=== PATIENT | female | born 1950 | race Caucasian/White ===

== ENCOUNTER 2024-01-27 09:58 | Observation (INO) | payer MEDICARE ==
--- NOTE | 2024-01-27 10:06 | ERPHSYRPT ---
- History of Present Illness Time Seen by Provider: 01/27/24 10:06 Source: patient, family Exam Limitations: no limitations Physician History: This is a 73-year-old white female patient who arrives by private vehicle accompanied by her daughter. Patient does see a direct response consultant, Dr. Owen Champagne. She arrives with worsening shortness of breath and cough over the last week. At home, the patient states that she could not lie down because of her shortness of breath. The oxygen saturations on room air at home were in the 60s per patient and daughter. On arrival to the emergency department, the patient was placed on oxygen, initially via mask then nasal cannula. The oxygen saturation levels then increased to 99 to 100%. Patient has had a nonproductive cough she denies chest pain. She has not had a fever at home. Patient states that she does have a history of COPD and continues to smoke tobacco cigarettes. Timing/Duration: week(s), worse Activities at Onset: activity (Persons), other (Lying flat worsens) Severity of Dyspnea-Max: moderate Severity of Dyspnea-Current: moderate Possible Cause: occasional episodes Modifying Factors: Improves With: coughing Associated Symptoms: cough, wheezing, No chest pain/discomfort Allergies/Adverse Reactions: Penicillins Allergy (Verified 01/27/24 09:59) Home Medications: Albuterol 8 gm Mdi Hfa [Ventolin Hfa MDI] 2 puff IH Q4HPRN PRN 01/27/24 [History] Atorvastatin Calcium [Lipitor] 20 mg PO DAILY 01/27/24 [History] Carvedilol 12.5 mg [Coreg 12.5 mg] 12.5 mg PO BID 01/27/24 [History] Digoxin [Lanoxin] 250 mcg PO DAILY 01/27/24 [History] Fluticasone/Salmeterol 115/21 [Advair Hfa 115/21 Common canister*] 2 puff IH BID 01/27/24 [History] Fluticasone/Umeclidin/Vilanter [Trelegy Ellipta 100-62.5-25] 1 dose IH DAILY 01/27/24 [History] Ipratropium/Albuterol Sulfate [Combivent Respimat Common Canister] 1 puff IH QID 01/27/24 [History] Non-Formulary Drug [Non-Formulary Bulk Item] 1 tab PO DAILY 01/27/24 [History] Prednisone 5 mg [Deltasone 5 mg] 5 mg PO DAILY 01/27/24 [History] Ranolazine 500 MG [Ranexa 500 MG] 500 mg PO DAILY 01/27/24 [History] Thyroid,Pork [Candy Wrapping Machine Operator Thyroid] 30 mg PO DAILY 01/27/24 [History] Travel Risk - International Travel Have you traveled outside of the country in past 3 weeks: No - Emerging Infectious Disease Are you exhibiting symptoms associated with any current EIDs: Yes Symptoms: Cough: New Onset, Shortness of Breath - Review of Systems Constitutional: No Symptoms Eyes: No Symptoms Ears, Nose, & Throat: No Symptoms Respiratory: Cough, Dyspnea on Exertion (PAIGE), Other (When lying flat) Cardiac: No Symptoms, No Chest Pain Abdominal/Gastrointestinal: No Symptoms Genitourinary Symptoms: No Symptoms Musculoskeletal: No Symptoms Skin: No Symptoms Neurological: No Symptoms Psychological: No Symptoms Endocrine: No Symptoms Hematologic/Lymphatic: No Symptoms Immunological/Allergic: No Symptoms All Other Systems: Reviewed and Negative - Past Medical History Pertinent Past Medical History: Yes - Nursing Vital Signs Nursing Vital Signs: Initial Vital Signs Temperature 97.5 F 01/27/24 10:00 Pulse Rate 115 H 01/27/24 10:00 Respiratory Rate 28 H 01/27/24 10:00 Blood Pressure 184/107 01/27/24 10:00 O2 Sat by Pulse Oximetry 63 L 01/27/24 10:00 Pain Scale Pain Intensity 0 - Physical Exam General Appearance: mild distress, alert Eye Exam: PERRL/EOMI, eyes nml inspection Ears, Nose, Throat Exam: hearing grossly normal, normal ENT inspection, normal pharynx Neck Exam: normal inspection, non-tender, supple, full range of motion Respiratory Exam: respiratory distress, airway intact, crackles/rales (Bilateral diffuse), rhonchi (Bilateral diffuse), No chest tenderness Cardiovascular/Chest Exam: tachycardia Abdominal/Gastrointestinal Exam: soft, normal bowel sounds, No tenderness Rectal Exam: not done Extremity Exam: non-tender, normal range of motion, No normal inspection Neurologic Exam: alert, oriented x 3, cooperative, maintenance department manager II-XII nml as tested, nml cerebellar function, nml station & gait, sensation nml Skin Exam: normal color, warm, dry Lymphatic Exam: No adenopathy SpO2 Interpretation: normal O2 Delivery: Nasal Cannula - Course Nursing assessment & vital signs reviewed: Yes EKG Interpreted by Me: RATE ([id number]), Sinus Rhythm, NORMAL AXIS, NORMAL INTERVALS, NORMAL QRS, NORMAL ST-T, Other (No acute ischemic changes on today's twelve-lead EKG. QTc is 412) Ordered Tests: Active Orders 24 hr Category Date Time Status Physical Therapy Instructor STAT Care 01/27/24 10:31 Active EKG-ER Only STAT Care 01/27/24 10:31 Active IV Insertion STAT Care 01/27/24 10:22 Active IV Insertion-2nd Peripheral STAT Care 01/27/24 10:22 Active Pulse Oximetry (ED) STAT Care 01/27/24 10:31 Active CHEST 1 VIEW (PORTABLE) Stat Exams 01/27/24 13:20 Taken ARTERIAL BLOOD GASES Urgent Lab 01/27/24 10:14 Completed BLOOD CULTURE Stat Lab 01/27/24 10:30 Received CBC W DIFF Stat Lab 01/27/24 10:30 Completed CMP Stat Lab 01/27/24 10:30 Completed Lactic Acid Urgent Lab 01/27/24 10:14 Completed MAGNESIUM Stat Lab 01/27/24 10:30 Completed Manual Differential NC Stat Lab 01/27/24 10:30 Completed NT PRO BNPII Stat Lab 01/27/24 10:30 Completed PROTIME WITH INR Stat Lab 01/27/24 10:30 Completed TROPONIN Q4H Lab 01/27/24 10:30 Completed TROPONIN Q4H Lab 01/27/24 14:45 Ordered TROPONIN Q4H Lab 01/27/24 18:45 Ordered Respiratory Therapy Assessment DAILY RT 01/27/24 11:32 Active Medication Summary Generic Name Dose Route Start Last Admin Trade Name Freq PRN Reason Stop Dose Admin Levofloxacin/Dextrose 500 mg in 100 mls @ 100 mls/hr 01/27/24 14:09 01/27/24 14:32 Levofloxacin 500mg/100ml D5w IV 01/27/24 15:08 100 mls/hr STAT STA 100 mls/hr Administration Discontinued Medications Generic Name Dose Route Start Last Admin Trade Name Freq PRN Reason Stop Dose Admin Albuterol/Ipratropium 3 ml 01/27/24 10:31 01/27/24 11:17 Ipratropium/Albuterol Sulfate 3 Ml Ampul.Neb IH 01/27/24 10:32 3 ml STAT ONE Administration Albuterol/Ipratropium Confirm 01/27/24 11:16 Ipratropium/Albuterol Sulfate 3 Ml Ampul.Neb Administered 01/27/24 11:17 Dose 3 ml IH .STK-MED ONE Methylprednisolone Sodium 0 mg 01/27/24 10:31 01/27/24 11:02 Succinate 125 mg/ Sterile IV 01/27/24 10:32 125 mg Water 2 ml STAT ONE Administration Furosemide 40 mg 01/27/24 11:31 01/27/24 11:38 Furosemide 40 Mg/4 Ml Vial IV 01/27/24 11:32 40 mg STAT ONE Administration Furosemide Confirm 01/27/24 11:37 Furosemide 40 Mg/4 Ml Vial Administered 01/27/24 11:38 Dose 40 mg .ROUTE .STK-MED ONE Levofloxacin/Dextrose Confirm 01/27/24 14:30 Levofloxacin 500mg/100ml D5w Administered 01/27/24 14:31 Dose 500 mg in 100 mls @ ud IV .STK-MED ONE Methylprednisolone Sodium Succinate Confirm 01/27/24 11:02 Methylprednis Sod Succ 125 Mg/2 Ml Vial Administered 01/27/24 11:03 Dose 125 mg .ROUTE .STK-MED ONE Sterile Water Confirm 01/27/24 11:02 Water For Injection,Sterile 10 Ml Vial Administered 01/27/24 11:03 Dose 10 ml IJ .STK-MED ONE Lab/Rad Data: Laboratory Result Diagrams 01/27/24 10:30 01/27/24 10:30 Laboratory Results 01/27/24 01/27/24 01/27/24 Range/Units 10:50 10:30 10:30 WBC (3.98-10.04) x10^3/uL RBC (3.93-5.22) x10^6/uL Hgb (11.2-15.7) g/dL Hct (34.1-44.9) % MCV (79.4-94.8) fL MCH (25.6-32.2) pg MCHC (32.2-35.5) g/dL RDW (11.7-14.4) % Plt Count (182-369) x10^3/uL MPV (9.4-12.3) fL Gran % (34.0-71.1) % Immature Gran % (Auto) (0.001-0.429) % Nucleat RBC Rel Count (0.00-0.2) % Eos # (Auto) (0.04-0.36) x10^3/uL Immature Gran # (Auto) (0.001-0.031) x10^3u/L Absolute Lymphs (auto) (1.18-3.74) x10^3/uL Absolute Monos (auto) (0.24-0.86) x10^3/uL Absolute Nucleated RBC (0.00-0.012) x10^3u/L Lymphocytes % (19.3-51.7) % Monocytes % (4.7-12.5) % Eosinophils % (0.7-5.8) % Basophils % (0.1-1.2) % Absolute Granulocytes (1.56-6.13) x10^3/uL Segmented Neutrophils (34.0-71.1) % Lymphocytes (Manual) (19.3-51.7) % Monocytes (Manual) (4.7-12.5) % Basophils # (0.01-0.08) x10^3/uL Platelet Estimate (NORMAL) RBC Morphology PT (9.4-12.5) SECONDS INR (0.8-3.0) Puncture Site pCO2 (35-45) mmHg pO2 (75-100) mmHg Base Excess (-2.0-2.0) O2 Saturation (94-100) g/dF ABG pH (7.35-7.45) ABG HCO3 (22-28) ABG O2 Sat (Measured) (95-100) % Jaylan Test A-a Gradient a/A Ratio Hemoglobin Carboxyhemoglobin (0.0-6.9) % THgb Methemoglobin (1.4-1.5) % Potassium (3.5-5.1) Temperature C POC O2 Flow Rate % Sodium (135-145) mmol/L Chloride (98-107) mmol/L Carbon Dioxide (22-30) mmol/L Anion Gap (5-15) MEQ/L BUN (7-17) mg/dL Creatinine (0.52-1.04) mg/dL Estimated GFR ML/MIN Glucose (74-106) mg/dL Lactic Acid (0.4-2.0) Calcium (8.4-10.2) mg/dL Magnesium (1.6-2.3) mg/dL Total Bilirubin (0.2-1.3) mg/dL AST (14-36) U/L ALT (0-35) U/L Alkaline Phosphatase (38-126) U/L Troponin I 0.012 (0.000-0.033) ng/mL NT-Pro-B Natriuret Pep 59562 (<300) pg/mL Serum Total Protein (6.3-8.2) g/dL Albumin (3.5-5.0) g/dL Influenza Type A Ag NEGATIVE (NEGATIVE) Influenza Type B Ag NEGATIVE (NEGATIVE) RSV (PCR) NEGATIVE (NEGATIVE) SARS-CoV-2 (PCR) NEGATIVE (NEGATIVE) 01/27/24 01/27/24 01/27/24 Range/Units 10:30 10:30 10:30 WBC 14.6 H (3.98-10.04) x10^3/uL RBC 4.61 (3.93-5.22) x10^6/uL Hgb 13.4 (11.2-15.7) g/dL Hct 39.8 (34.1-44.9) % MCV 86.3 (79.4-94.8) fL MCH 29.1 (25.6-32.2) pg MCHC 33.7 (32.2-35.5) g/dL RDW 13.3 (11.7-14.4) % Plt Count 331 (182-369) x10^3/uL MPV 8.9 L (9.4-12.3) fL Gran % 83.3 H (34.0-71.1) % Immature Gran % (Auto) 0.6 H (0.001-0.429) % Nucleat RBC Rel Count 0.0 (0.00-0.2) % Eos # (Auto) 0.58 H (0.04-0.36) x10^3/uL Immature Gran # (Auto) 0.09 H (0.001-0.031) x10^3u/L Absolute Lymphs (auto) 1.15 L (1.18-3.74) x10^3/uL Absolute Monos (auto) 0.57 (0.24-0.86) x10^3/uL Absolute Nucleated RBC 0.00 (0.00-0.012) x10^3u/L Lymphocytes % 7.9 L (19.3-51.7) % Monocytes % 3.9 L (4.7-12.5) % Eosinophils % 4.0 (0.7-5.8) % Basophils % 0.3 (0.1-1.2) % Absolute Granulocytes 12.12 H (1.56-6.13) x10^3/uL Segmented Neutrophils 92 H (34.0-71.1) % Lymphocytes (Manual) 5 L (19.3-51.7) % Monocytes (Manual) 3 L (4.7-12.5) % Basophils # 0.05 (0.01-0.08) x10^3/uL Platelet Estimate NORMAL (NORMAL) RBC Morphology NORMAL PT 12.4 (9.4-12.5) SECONDS INR 1.15 (0.8-3.0) Puncture Site pCO2 (35-45) mmHg pO2 (75-100) mmHg Base Excess (-2.0-2.0) O2 Saturation (94-100) g/dF ABG pH (7.35-7.45) ABG HCO3 (22-28) ABG O2 Sat (Measured) (95-100) % Jaylan Test A-a Gradient a/A Ratio Hemoglobin Carboxyhemoglobin (0.0-6.9) % THgb Methemoglobin (1.4-1.5) % Potassium 4.5 (3.5-5.1) Temperature C POC O2 Flow Rate % Sodium 129 L (135-145) mmol/L Chloride 90 L (98-107) mmol/L Carbon Dioxide 30 (22-30) mmol/L Anion Gap 12.8 (5-15) MEQ/L BUN 9 (7-17) mg/dL Creatinine 0.64 (0.52-1.04) mg/dL Estimated GFR 92.7 ML/MIN Glucose 136 H (74-106) mg/dL Lactic Acid (0.4-2.0) Calcium 9.3 (8.4-10.2) mg/dL Magnesium 1.5 L (1.6-2.3) mg/dL Total Bilirubin 0.80 (0.2-1.3) mg/dL AST 24 (14-36) U/L ALT 23 (0-35) U/L Alkaline Phosphatase 72 (38-126) U/L Troponin I (0.000-0.033) ng/mL NT-Pro-B Natriuret Pep (<300) pg/mL Serum Total Protein 7.6 (6.3-8.2) g/dL Albumin 4.2 (3.5-5.0) g/dL Influenza Type A Ag (NEGATIVE) Influenza Type B Ag (NEGATIVE) RSV (PCR) (NEGATIVE) SARS-CoV-2 (PCR) (NEGATIVE) 01/27/24 Range/Units 10:14 WBC (3.98-10.04) x10^3/uL RBC (3.93-5.22) x10^6/uL Hgb (11.2-15.7) g/dL Hct (34.1-44.9) % MCV (79.4-94.8) fL MCH (25.6-32.2) pg MCHC (32.2-35.5) g/dL RDW (11.7-14.4) % Plt Count (182-369) x10^3/uL MPV (9.4-12.3) fL Gran % (34.0-71.1) % Immature Gran % (Auto) (0.001-0.429) % Nucleat RBC Rel Count (0.00-0.2) % Eos # (Auto) (0.04-0.36) x10^3/uL Immature Gran # (Auto) (0.001-0.031) x10^3u/L Absolute Lymphs (auto) (1.18-3.74) x10^3/uL Absolute Monos (auto) (0.24-0.86) x10^3/uL Absolute Nucleated RBC (0.00-0.012) x10^3u/L Lymphocytes % (19.3-51.7) % Monocytes % (4.7-12.5) % Eosinophils % (0.7-5.8) % Basophils % (0.1-1.2) % Absolute Granulocytes (1.56-6.13) x10^3/uL Segmented Neutrophils (34.0-71.1) % Lymphocytes (Manual) (19.3-51.7) % Monocytes (Manual) (4.7-12.5) % Basophils # (0.01-0.08) x10^3/uL Platelet Estimate (NORMAL) RBC Morphology PT (9.4-12.5) SECONDS INR (0.8-3.0) Puncture Site RIGHT BRACHIAL pCO2 50 H (35-45) mmHg pO2 97 (75-100) mmHg Base Excess 1.9 (-2.0-2.0) O2 Saturation 94.4 (94-100) g/dF ABG pH 7.36 (7.35-7.45) ABG HCO3 28.2 H (22-28) ABG O2 Sat (Measured) 99.2 (95-100) % Jaylan Test NOT APPLICABLE A-a Gradient 554 a/A Ratio 0.15 Hemoglobin 13.5 Carboxyhemoglobin 4.2 (0.0-6.9) % THgb Methemoglobin 0.6 L (1.4-1.5) % Potassium 4.1 (3.5-5.1) Temperature 37.0 C POC O2 Flow Rate 100 % Sodium (135-145) mmol/L Chloride (98-107) mmol/L Carbon Dioxide (22-30) mmol/L Anion Gap (5-15) MEQ/L BUN (7-17) mg/dL Creatinine (0.52-1.04) mg/dL Estimated GFR ML/MIN Glucose (74-106) mg/dL Lactic Acid 1.5 (0.4-2.0) Calcium (8.4-10.2) mg/dL Magnesium (1.6-2.3) mg/dL Total Bilirubin (0.2-1.3) mg/dL AST (14-36) U/L ALT (0-35) U/L Alkaline Phosphatase (38-126) U/L Troponin I (0.000-0.033) ng/mL NT-Pro-B Natriuret Pep (<300) pg/mL Serum Total Protein (6.3-8.2) g/dL Albumin (3.5-5.0) g/dL Influenza Type A Ag (NEGATIVE) Influenza Type B Ag (NEGATIVE) RSV (PCR) (NEGATIVE) SARS-CoV-2 (PCR) (NEGATIVE) - Progress Progress: improved, re-examined Progress Note: 01/27/24 11:37 My medical decision making and the assignment of moderate complexity to this patient's medical issue today is based on review of the patient's past medical history, review of the patient's medication list, reviewed patient drug allergy list, history present illness and physical findings on examination. The workup in this patient includes placement of a intravenous line, respiratory therapy evaluation management with DuoNeb treatment, infusion of Solu-Medrol, CBC, CMP, twelve-lead EKG, troponin level, BNP level, chest x-ray, viral swabs. Differential diagnosis includes but is not limited to viral illness, pneumonia, COPD exacerbation, CHF, myocardial infarction, arrhythmias 01/27/24 15:00 I interpreted the patient's laboratory data results. Based on laboratory data results, the patient has CHF. Patient also has leukocytosis with a left shift. The preliminary chest x-ray report was dictated by me. Patient has a right lower lobe infiltrate. I did speak with Dr. Godoy, the hospitalist on-call at this time. I reviewed the patient history, physical findings, laboratory workup and results. She accepts the patient to be placed in observation. Blood Culture(s) Obtained: Yes Antibiotics given: Yes Counseled pt/family regarding: lab results, diagnosis, rad results Medical Desision Making - Independent Historian Additional History obtained from: Family - Diagnostic Testing Diagnostic test were ordered, analyzed, and reviewed by me: Yes Radiological Interpretation: Interpreted by me - Risk of complications The pt has a high risk of morbidity or mortality based on: Decision regarding hospitilization or escalation of hosp level of care - Departure Departure Disposition: Observation Clinical Impression: Hypoxia, Pneumonia, CHF (congestive heart failure) Condition: Stable Critical Care Time: Yes Critical Care Time(excluding separately billable procedures): Critical 30-74 mins (40) Referrals: RUFINO CHAMPAGNE [ACTIVE STAFF] - Follow up/PCP as directed Instructions: Heart Failure
[2024-01-27 10:15] LABS: A-aADO2 554; ABG HEMOGLOBIN 13.5; ABG POTASSIUM 4.1 (3.5-5.1); ARTERIAL BLD GAS O2 SATURATION 99.2 % (95-100); ARTERIAL BLOOD GAS BASE EXCESS 1.9 (-2.0-2.0); ARTERIAL BLOOD GAS FIO2 100 %; ARTERIAL BLOOD GAS PCO2 50 mmHg (35-45); ARTERIAL BLOOD GAS PO2 97 mmHg (75-100); ARTERIAL BLOOD GAS pH 7.36 (7.35-7.45); CARBOXYHEMOGLOBIN 4.2 % THgb (0.0-6.9); HCO3- 28.2 (22-28); HGB O2 SAT 94.4 g/dF (94-100); Lactic Acid 1.5 (0.4-2.0); Methhemoglobin 0.6 % (1.4-1.5); paO2 pAO1 0.15
[2024-01-27 10:16] LABS: ABG SITE RIGHT BRACHIAL
[2024-01-27 10:41] LABS: Absolute Neutrophil Ct (ANC) 12.12 x10^3/uL (1.56-6.13); BASOPHIL % 0.3 % (0.1-1.2); Basophil (Absolute #) 0.05 x10^3/uL (0.01-0.08); Eosinophil (Absolute #) 0.58 x10^3/uL (0.04-0.36); Hematocrit 39.8 % (34.1-44.9); Hemoglobin 13.4 g/dL (11.2-15.7); IMMATURE GRAN # 0.09 x10^3u/L (0.001-0.031); IMMATURE GRAN % 0.6 % (0.001-0.429); Lymphocyte (Absolute #) 1.15 x10^3/uL (1.18-3.74); Lymphocytes % 7.9 % (19.3-51.7); Mean Cell Volume 86.3 fL (79.4-94.8); Mean Corpuscular Hemoglobin 29.1 pg (25.6-32.2); Mean Corpuscular Hgb Concent. 33.7 g/dL (32.2-35.5); Mean Platelet Volume 8.9 fL (9.4-12.3); Monocyte (Absolute #) 0.57 x10^3/uL (0.24-0.86); Monocytes % 3.9 % (4.7-12.5); Neutrophil % 83.3 % (34.0-71.1); Platelet Count 331 x10^3/uL (182-369); Red Blood Count 4.61 x10^6/uL (3.93-5.22); Red Cell Distribution Width 13.3 % (11.7-14.4); White Blood Count 14.6 x10^3/uL (3.98-10.04)
[2024-01-27 10:47] LABS: INR 1.15 (0.8-3.0); PROTIME 12.4 SECONDS (9.4-12.5)
[2024-01-27 10:49] LABS: ALBUMIN 4.2 g/dL (3.5-5.0); ANION GAP 12.8 MEQ/L (5-15); BILIRUBIN,TOTAL 0.8 mg/dL (0.2-1.3); Calcium 9.3 mg/dL (8.4-10.2); Creatinine 1 0.64 mg/dL (0.52-1.04); EST GLOMERULAR FILTRATION RATE 92.7 ML/MIN; MAGNESIUM 1.5 mg/dL (1.6-2.3); Potassium 4.5 mmol/L (3.5-5.1); Total Protein 7.6 g/dL (6.3-8.2)
[2024-01-27] MEDS ORDERED: Sterile H2O 10 ml IJ ONE ×2 (11:02→21:29)
[2024-01-27] MEDS ORDERED: solu-MEDROL ONE ×2 (11:02→21:28)
[2024-01-27] MEDS: solu-MEDROL 125 MG, Sterile H2O 10 ml 2 ML IV ONE (11:02)
[2024-01-27] MEDS ORDERED: DUONEB 0.5-3 MG/3 ml Neb IH ONE (11:16)
[2024-01-27] MEDS: DUONEB 0.5-3 MG/3 ml Neb IH ONE (11:17)
[2024-01-27] MEDS ORDERED: Lasix 40 MG/4 ML ONE (11:37)
[2024-01-27] MEDS: Lasix 40 MG/4 ML IV ONE (11:38)
[2024-01-27 11:42] LABS: Lymphocytes 5 % (19.3-51.7); Monocyte 3 % (4.7-12.5); Neutrophils 92 % (34.0-71.1); Total Cells Counted 100
[2024-01-27 11:43] LABS: Platelet Estimate NORMAL (NORMAL)
[2024-01-27 12:00] LABS: INFLUENZA A NEGATIVE (NEGATIVE); INFLUENZA B NEGATIVE (NEGATIVE); RESPIRATORY SYNCTIAL VIRUS NEGATIVE (NEGATIVE); SARS-CoV-2 Xpert Express NEGATIVE (NEGATIVE)
[2024-01-27] MEDS ORDERED: Levofloxacin 500MG/100ML D5W 500 MG/100 ML BAG IV ONE (14:30)
[2024-01-27] MEDS: Levofloxacin 500MG/100ML D5W 500 MG/100 ML BAG IV STA (14:32)
[2024-01-27] MEDS ORDERED: Zofran 4 MG/2 ML VIAL IV PRN (15:54)
--- NOTE | 2024-01-27 16:08 | PCM.HP ---
<RUSTY SILVER - Last Filed: 01/27/24 17:29> History of Present Illness - Chief Complaint Chief Complaint: Hypoxia Date: 01/27/24 History of Present Illness: is a 73 year old female with PMHX of HTN, COPD, asthma, hypothyroid ism, OA, and daily smoker. Patient does see a solar technician, Dr. Owen Valerio. She arrived to ER today with worsening shortness of breath and cough over the last week. At home, the patient stated that she could not lie down because of her shortness of breath. The oxygen saturations on room air at home were in the 60s per patient and daughter. On arrival to the emergency department, the patient was placed on oxygen, initially via mask then nasal cannula. The oxygen saturation levels then increased to 99 to 100%. Patient has had a nonproductive cough she denies chest pain. She has not had a fever at home. Patient states that she does have a history of COPD and continues to smoke tobacco cigarettes. In ER she was started on Lasix, Levaquin, steroids, and duonebs for COPD, CHF exacerbation- will continue. WBC 14.6, she is on 4lNC 93% and does not wear O2 at baseline. She continues to have SOB on admission. She states she will stay 1 night and she will leave tomorrow, either we release her or she will leave AMA. She is refusing a nicotine patch. Discussed we will re-evaluate in AM. - Review of Systems Constitutional: No Fever, No Chills Eyes: No Symptoms Ears, Nose, & Throat: No Symptoms Respiratory: Cough, Orthopnea, Short Of Breath, Other (with clear sputum p roduction) Cardiac: No Chest Pain, No Edema, No Syncope Abdominal/Gastrointestinal: No Abdominal Pain, No Nausea, No Vomiting, No Diarrhea Genitourinary Symptoms: No Dysuria Musculoskeletal: No Back Pain, No Neck Pain Skin: No Rash Neurological: No Dizziness, No Focal Weakness, No Sensory Changes Psychological: No Symptoms Endocrine: No Symptoms Hematologic/Lymphatic: No Symptoms Immunological/Allergic: No Symptoms Medications & Allergies Home Medications: Home Medication List Albuterol 8 gm Mdi Hfa [Ventolin Hfa MDI] 2 puff IH Q4HPRN PRN 01/27/24 [History Confirmed 01/27/24] Atorvastatin Calcium [Lipitor] 20 mg PO DAILY 01/27/24 [History Confirmed 01/27/24] Carvedilol 12.5 mg [Coreg 12.5 mg] 12.5 mg PO BID 01/27/24 [History Confirmed 01/27/24] Digoxin [Lanoxin] 250 mcg PO DAILY 01/27/24 [History Confirmed 01/27/24] Fexofenadine/Pseudoephedrine [Fexofenadine-Pse ER 180-240 Tb] 1 each PO DAILY 01/27/24 [History Confirmed 01/27/24] Fluticasone/Salmeterol 115/21 [Advair Hfa 115/21 Common canister*] 2 puff IH BID 01/27/24 [History Confirmed 01/27/24] Fluticasone/Umeclidin/Vilanter [Trelegy Ellipta 100-62.5-25] 1 dose IH DAILY 01/27/24 [History Confirmed 01/27/24] Ipratropium/Albuterol Sulfate [Combivent Respimat Common Canister] 1 puff IH QID 01/27/24 [History Confirmed 01/27/24] Prednisone 5 mg [Deltasone 5 mg] 5 mg PO DAILY 01/27/24 [History Confirmed 01/27/24] Ranolazine 500 MG [Ranexa 500 MG] 500 mg PO DAILY 01/27/24 [History Confirmed 01/27/24] Thyroid,Pork [Sieve Grader Tender Thyroid] 30 mg PO DAILY 01/27/24 [History Confirmed 01/27/24] Allergies/Adverse Reactions: Allergies Allergy/AdvReac Type Severity Reaction Status Date / Time Penicillins Allergy Verified 01/27/24 09:59 - Past Medical History Past Medical History: Yes Neurological History: No Pertinent History ENT History: Cataracts Cardiac History: Hypertension Respiratory History: Asthma, COPD Endocrine Medical History: Hypothyroidism Musculoskelatal History: Arthritis GI Medical History: No Pertinent History History: No Pertinent History Pyscho-Social History: No Pertinent History Reproductive Disorders: No Pertinent History - Past Surgical History Past Surgical History: Yes Neuro Surgical History: No Pertinent History Cardiac History: No Pertinent History Respiratory Surgery: No Pertinent History GI Surgical History: Cholecystectomy Genitourinary Surgical Hx: No Pertinent History Musculskeletal Surgical Hx: No Pertinent History Female Surgical History: Dilation & Curettage Significant Family History: no pertinent family hx - Social History Smoking Status: Current every day smoker How long have you smoked: 25+ YEARS Alcohol: None Drug Use: none - Social Determinants of Health Will the patient participate in the screening: Yes Do you worry about a steady place to live?: No Do you have any problems with any of the following?: No known problems In the past 12 months,have you had to go without utilities?: No Have you or anyone in your house had to go without enough: No Transportation Issues: No Has anyone in your support network made you feel unsafe?: No - Physical Exam Vital Signs: Vital Signs - 24 hr Temp Pulse Resp BP BP Pulse Ox 01/27/24 15:31 89 30 H 165/133 96 01/27/24 15:10 90 20 156/93 95 01/27/24 15:00 80 18 163/95 96 01/27/24 14:50 81 16 170/97 96 01/27/24 14:40 82 18 171/102 96 01/27/24 14:30 81 20 156/87 96 01/27/24 14:20 78 15 145/88 95 01/27/24 14:10 79 16 161/91 95 01/27/24 14:00 79 11 L 147/93 94 L 01/27/24 13:50 79 19 158/84 95 01/27/24 13:40 82 18 158/88 95 01/27/24 13:30 83 22 147/80 95 01/27/24 13:20 75 17 140/80 95 01/27/24 13:10 76 20 152/87 95 01/27/24 13:00 78 19 154/85 96 01/27/24 12:50 79 20 161/90 95 01/27/24 12:40 79 19 165/87 96 01/27/24 12:30 82 23 154/90 96 01/27/24 12:29 96 01/27/24 12:28 94 L 01/27/24 12:10 163/92 01/27/24 12:00 85 22 162/86 93 L 01/27/24 11:50 86 167/99 93 L 01/27/24 11:40 90 162/105 91 L 01/27/24 11:34 89 20 96 01/27/24 11:30 26 H 168/82 96 01/27/24 11:20 151/94 91 L 01/27/24 11:10 167/91 94 L 01/27/24 11:09 96 01/27/24 11:00 90 158/92 96 01/27/24 10:50 151/91 96 01/27/24 10:40 155/91 96 01/27/24 10:30 160/89 96 01/27/24 10:04 184/107 96 01/27/24 10:00 97.5 F 115 H 28 H 184/107 99 General Appearance: no apparent distress, alert, thin Neurologic Exam: alert, oriented x 3, cooperative, normal mood/affect, nml cerebellar function, nml station & gait, sensation nml, No motor deficits Eye Exam: PERRL/EOMI, eyes nml inspection Ears, Nose, Throat Exam: normal ENT inspection, TMs normal, pharynx normal, moist mucous membranes Neck Exam: normal inspection, non-tender, supple, full range of motion Respiratory Exam: normal breath sounds, wheezing, No respiratory distress Cardiovascular Exam: regular rate/rhythm, normal heart sounds, normal peripheral pulses Gastrointestinal/Abdomen Exam: soft, normal bowel sounds, No tenderness, No mass Back Exam: normal inspection, normal range of motion, No CVA tenderness, No vertebral tenderness Extremity Exam: normal inspection, normal range of motion, pelvis stable Skin Exam: normal color, warm, dry, No rash Lymphatic Exam: No adenopathy Results - Labs Lab/Micro Results: Lab Results-Last 24 Hours 01/27/24 01/27/24 01/27/24 Range/Units 10:14 10:30 10:30 WBC 14.6 H (3.98-10.04) x10^3/uL RBC 4.61 (3.93-5.22) x10^6/uL Hgb 13.4 (11.2-15.7) g/dL Hct 39.8 (34.1-44.9) % MCV 86.3 (79.4-94.8) fL MCH 29.1 (25.6-32.2) pg MCHC 33.7 (32.2-35.5) g/dL RDW 13.3 (11.7-14.4) % Plt Count 331 (182-369) x10^3/uL MPV 8.9 L (9.4-12.3) fL Gran % 83.3 H (34.0-71.1) % Immature Gran % (Auto) 0.6 H (0.001-0.429) % Nucleat RBC Rel Count 0.0 (0.00-0.2) % Eos # (Auto) 0.58 H (0.04-0.36) x10^3/uL Immature Gran # (Auto) 0.09 H (0.001-0.031) x10^3u/L Absolute Lymphs (auto) 1.15 L (1.18-3.74) x10^3/uL Absolute Monos (auto) 0.57 (0.24-0.86) x10^3/uL Absolute Nucleated RBC 0.00 (0.00-0.012) x10^3u/L Lymphocytes % 7.9 L (19.3-51.7) % Monocytes % 3.9 L (4.7-12.5) % Eosinophils % 4.0 (0.7-5.8) % Basophils % 0.3 (0.1-1.2) % Absolute Granulocytes 12.12 H (1.56-6.13) x10^3/uL Segmented Neutrophils 92 H (34.0-71.1) % Lymphocytes (Manual) 5 L (19.3-51.7) % Monocytes (Manual) 3 L (4.7-12.5) % Basophils # 0.05 (0.01-0.08) x10^3/uL Platelet Estimate NORMAL (NORMAL) RBC Morphology NORMAL PT (9.4-12.5) SECONDS INR (0.8-3.0) Puncture Site RIGHT BRACHIAL pCO2 50 H (35-45) mmHg pO2 97 (75-100) mmHg Base Excess 1.9 (-2.0-2.0) O2 Saturation 94.4 (94-100) g/dF ABG pH 7.36 (7.35-7.45) ABG HCO3 28.2 H (22-28) ABG O2 Sat (Measured) 99.2 (95-100) % Jaylan Test NOT APPLICABLE A-a Gradient 554 a/A Ratio 0.15 Hemoglobin 13.5 Carboxyhemoglobin 4.2 (0.0-6.9) % THgb Methemoglobin 0.6 L (1.4-1.5) % Potassium 4.1 4.5 (3.5-5.1) Temperature 37.0 C POC O2 Flow Rate 100 % Sodium 129 L (135-145) mmol/L Chloride 90 L (98-107) mmol/L Carbon Dioxide 30 (22-30) mmol/L Anion Gap 12.8 (5-15) MEQ/L BUN 9 (7-17) mg/dL Creatinine 0.64 (0.52-1.04) mg/dL Estimated GFR 92.7 ML/MIN Glucose 136 H (74-106) mg/dL Lactic Acid 1.5 (0.4-2.0) Calcium 9.3 (8.4-10.2) mg/dL Magnesium 1.5 L (1.6-2.3) mg/dL Total Bilirubin 0.80 (0.2-1.3) mg/dL AST 24 (14-36) U/L ALT 23 (0-35) U/L Alkaline Phosphatase 72 (38-126) U/L Troponin I (0.000-0.033) ng/mL NT-Pro-B Natriuret Pep (<300) pg/mL Serum Total Protein 7.6 (6.3-8.2) g/dL Albumin 4.2 (3.5-5.0) g/dL Influenza Type A Ag (NEGATIVE) Influenza Type B Ag (NEGATIVE) RSV (PCR) (NEGATIVE) SARS-CoV-2 (PCR) (NEGATIVE) 01/27/24 01/27/24 01/27/24 Range/Units 10:30 10:30 10:30 WBC (3.98-10.04) x10^3/uL RBC (3.93-5.22) x10^6/uL Hgb (11.2-15.7) g/dL Hct (34.1-44.9) % MCV (79.4-94.8) fL MCH (25.6-32.2) pg MCHC (32.2-35.5) g/dL RDW (11.7-14.4) % Plt Count (182-369) x10^3/uL MPV (9.4-12.3) fL Gran % (34.0-71.1) % Immature Gran % (Auto) (0.001-0.429) % Nucleat RBC Rel Count (0.00-0.2) % Eos # (Auto) (0.04-0.36) x10^3/uL Immature Gran # (Auto) (0.001-0.031) x10^3u/L Absolute Lymphs (auto) (1.18-3.74) x10^3/uL Absolute Monos (auto) (0.24-0.86) x10^3/uL Absolute Nucleated RBC (0.00-0.012) x10^3u/L Lymphocytes % (19.3-51.7) % Monocytes % (4.7-12.5) % Eosinophils % (0.7-5.8) % Basophils % (0.1-1.2) % Absolute Granulocytes (1.56-6.13) x10^3/uL Segmented Neutrophils (34.0-71.1) % Lymphocytes (Manual) (19.3-51.7) % Monocytes (Manual) (4.7-12.5) % Basophils # (0.01-0.08) x10^3/uL Platelet Estimate (NORMAL) RBC Morphology PT 12.4 (9.4-12.5) SECONDS INR 1.15 (0.8-3.0) Puncture Site pCO2 (35-45) mmHg pO2 (75-100) mmHg Base Excess (-2.0-2.0) O2 Saturation (94-100) g/dF ABG pH (7.35-7.45) ABG HCO3 (22-28) ABG O2 Sat (Measured) (95-100) % Jaylan Test A-a Gradient a/A Ratio Hemoglobin Carboxyhemoglobin (0.0-6.9) % THgb Methemoglobin (1.4-1.5) % Potassium (3.5-5.1) Temperature C POC O2 Flow Rate % Sodium (135-145) mmol/L Chloride (98-107) mmol/L Carbon Dioxide (22-30) mmol/L Anion Gap (5-15) MEQ/L BUN (7-17) mg/dL Creatinine (0.52-1.04) mg/dL Estimated GFR ML/MIN Glucose (74-106) mg/dL Lactic Acid (0.4-2.0) Calcium (8.4-10.2) mg/dL Magnesium (1.6-2.3) mg/dL Total Bilirubin (0.2-1.3) mg/dL AST (14-36) U/L ALT (0-35) U/L Alkaline Phosphatase (38-126) U/L Troponin I 0.012 (0.000-0.033) ng/mL NT-Pro-B Natriuret Pep 83076 (<300) pg/mL Serum Total Protein (6.3-8.2) g/dL Albumin (3.5-5.0) g/dL Influenza Type A Ag (NEGATIVE) Influenza Type B Ag (NEGATIVE) RSV (PCR) (NEGATIVE) SARS-CoV-2 (PCR) (NEGATIVE) 01/27/24 01/27/24 Range/Units 10:50 14:46 WBC (3.98-10.04) x10^3/uL RBC (3.93-5.22) x10^6/uL Hgb (11.2-15.7) g/dL Hct (34.1-44.9) % MCV (79.4-94.8) fL MCH (25.6-32.2) pg MCHC (32.2-35.5) g/dL RDW (11.7-14.4) % Plt Count (182-369) x10^3/uL MPV (9.4-12.3) fL Gran % (34.0-71.1) % Immature Gran % (Auto) (0.001-0.429) % Nucleat RBC Rel Count (0.00-0.2) % Eos # (Auto) (0.04-0.36) x10^3/uL Immature Gran # (Auto) (0.001-0.031) x10^3u/L Absolute Lymphs (auto) (1.18-3.74) x10^3/uL Absolute Monos (auto) (0.24-0.86) x10^3/uL Absolute Nucleated RBC (0.00-0.012) x10^3u/L Lymphocytes % (19.3-51.7) % Monocytes % (4.7-12.5) % Eosinophils % (0.7-5.8) % Basophils % (0.1-1.2) % Absolute Granulocytes (1.56-6.13) x10^3/uL Segmented Neutrophils (34.0-71.1) % Lymphocytes (Manual) (19.3-51.7) % Monocytes (Manual) (4.7-12.5) % Basophils # (0.01-0.08) x10^3/uL Platelet Estimate (NORMAL) RBC Morphology PT (9.4-12.5) SECONDS INR (0.8-3.0) Puncture Site pCO2 (35-45) mmHg pO2 (75-100) mmHg Base Excess (-2.0-2.0) O2 Saturation (94-100) g/dF ABG pH (7.35-7.45) ABG HCO3 (22-28) ABG O2 Sat (Measured) (95-100) % Jaylan Test A-a Gradient a/A Ratio Hemoglobin Carboxyhemoglobin (0.0-6.9) % THgb Methemoglobin (1.4-1.5) % Potassium (3.5-5.1) Temperature C POC O2 Flow Rate % Sodium (135-145) mmol/L Chloride (98-107) mmol/L Carbon Dioxide (22-30) mmol/L Anion Gap (5-15) MEQ/L BUN (7-17) mg/dL Creatinine (0.52-1.04) mg/dL Estimated GFR ML/MIN Glucose (74-106) mg/dL Lactic Acid (0.4-2.0) Calcium (8.4-10.2) mg/dL Magnesium (1.6-2.3) mg/dL Total Bilirubin (0.2-1.3) mg/dL AST (14-36) U/L ALT (0-35) U/L Alkaline Phosphatase (38-126) U/L Troponin I 0.017 (0.000-0.033) ng/mL NT-Pro-B Natriuret Pep (<300) pg/mL Serum Total Protein (6.3-8.2) g/dL Albumin (3.5-5.0) g/dL Influenza Type A Ag NEGATIVE (NEGATIVE) Influenza Type B Ag NEGATIVE (NEGATIVE) RSV (PCR) NEGATIVE (NEGATIVE) SARS-CoV-2 (PCR) NEGATIVE (NEGATIVE) - Radiology Impressions Radiology Exams & Impressions: Radiology Procedures Category Date Time Status CHEST 1 VIEW (PORTABLE) Stat Exams 01/27/24 13:20 Taken - Other Procedures and Tests Respiratory Therapy 01/27/24 11:32 Respiratory Therapy Assessment DAILY Assessment/Plan (1) COPD exacerbation Current Visit: Yes Status: Acute Assessment & Plan: - Duonebs, Levaquin, Steriods- started in ER Continue - Continue home advair, trelogy - CXR pending - CBC, CMP reviewed. - RT eval and treat keep O2> 92% Code(s): J44.1 - CHRONIC OBSTRUCTIVE PULMONARY DISEASE W (ACUTE) EXACERBATION (2) Hypomagnesemia Current Visit: Yes Status: Acute Assessment & Plan: - Mg+ 1.5- replaced- trend Code(s): E83.42 - HYPOMAGNESEMIA (3) Hyponatremia Current Visit: Yes Status: Acute Assessment & Plan: - Na+ 129- trend - No N/V/D. Code(s): E87.1 - HYPO-OSMOLALITY AND HYPONATREMIA (4) HTN (hypertension) Current Visit: Yes Status: Chronic Assessment & Plan: - Continue home meds - trend BP Code(s): I10 - ESSENTIAL (PRIMARY) HYPERTENSION (5) CHF (congestive heart failure) Current Visit: Yes Status: Acute Assessment & Plan: - Lasix IV gave in ER- continue 20 IV daily - No previous Echo on file to review - Unable to obtain echo on the weekends - BNP 25172- no previous labs to review - heart healthy diet Code(s): I50.9 - HEART FAILURE, UNSPECIFIED (6) Pneumonia Current Visit: Yes Status: Acute Assessment & Plan: - Per ER physician - IV antibiotoc, steriods, duonebs, advair, trelogy - CXR pending - WBC 14.6 - Flu/ COVID/RSV negative Code(s): J18.9 - PNEUMONIA, UNSPECIFIED ORGANISM (7) Hyperlipidemia Current Visit: Yes Status: Chronic Assessment & Plan: - Continue statin Code(s): E78.5 - HYPERLIPIDEMIA, UNSPECIFIED (8) Smoker Current Visit: Yes Status: Chronic Assessment & Plan: - refused nicotine patch - refuses to quit - advised cessation Code(s): F17.200 - NICOTINE DEPENDENCE, UNSPECIFIED, UNCOMPLICATED (9) Hypothyroidism Current Visit: Yes Status: Chronic Assessment & Plan: - continue synthroid VTE:Lovenox PPI: Protonix Next of KIN: Spouse D/C plan: 1-2 days COde status: Full Code(s): E03.9 - HYPOTHYROIDISM, UNSPECIFIED Telemedicine Encounter - Telemedicine Encounter Telemedicine Encounter: "The entirety of this encounter was performed via Telemedicine" This visit was performed using real-time audio and video connection between my location and thepatients locationwith the assistance of a surrogateat the patients location. Written or verbal consent was obtained from the patient/guardian to perform this visit [facility] technology. Any patient questions regarding the telemedicine interaction were answered. <ÓSCAR SOLANO - Last Filed: 01/27/24 18:23> History of Present Illness - Chief Complaint History of Present Illness: is a 73 year old female. - Physical Exam Vital Signs: Vital Signs - 24 hr Temp Pulse Resp BP BP Pulse Ox 01/27/24 18:16 95 H 22 92 L 01/27/24 16:02 97.7 F 88 27 H 151/85 93 L 01/27/24 15:31 89 30 H 165/133 96 01/27/24 15:10 90 20 156/93 95 01/27/24 15:00 80 18 163/95 96 01/27/24 14:50 81 16 170/97 96 01/27/24 14:40 82 18 171/102 96 01/27/24 14:30 81 20 156/87 96 01/27/24 14:20 78 15 145/88 95 01/27/24 14:10 79 16 161/91 95 01/27/24 14:00 79 11 L 147/93 94 L 01/27/24 13:50 79 19 158/84 95 01/27/24 13:40 82 18 158/88 95 01/27/24 13:30 83 22 147/80 95 01/27/24 13:20 75 17 140/80 95 01/27/24 13:10 76 20 152/87 95 01/27/24 13:00 78 19 154/85 96 01/27/24 12:50 79 20 161/90 95 01/27/24 12:40 79 19 165/87 96 01/27/24 12:30 82 23 154/90 96 11/30/24 12:29 96 01/27/24 12:28 94 L 01/27/24 12:10 163/92 01/27/24 12:00 85 22 162/86 93 L 01/27/24 11:50 86 167/99 93 L 01/27/24 11:40 90 162/105 91 L 01/27/24 11:34 89 20 96 01/27/24 11:30 26 H 168/82 96 01/27/24 11:20 151/94 91 L 01/27/24 11:10 167/91 94 L 01/27/24 11:09 96 01/27/24 11:00 90 158/92 96 01/27/24 10:50 151/91 96 01/27/24 10:40 155/91 96 01/27/24 10:30 160/89 96 01/27/24 10:04 184/107 96 01/27/24 10:00 97.5 F 115 H 28 H 184/107 99 Results - Labs Lab/Micro Results: Lab Results-Last 24 Hours 01/27/24 01/27/24 01/27/24 Range/Units 10:14 10:30 10:30 WBC 14.6 H (3.98-10.04) x10^3/uL RBC 4.61 (3.93-5.22) x10^6/uL Hgb 13.4 (11.2-15.7) g/dL Hct 39.8 (34.1-44.9) % MCV 86.3 (79.4-94.8) fL MCH 29.1 (25.6-32.2) pg MCHC 33.7 (32.2-35.5) g/dL RDW 13.3 (11.7-14.4) % Plt Count 331 (182-369) x10^3/uL MPV 8.9 L (9.4-12.3) fL Gran % 83.3 H (34.0-71.1) % Immature Gran % (Auto) 0.6 H (0.001-0.429) % Nucleat RBC Rel Count 0.0 (0.00-0.2) % Eos # (Auto) 0.58 H (0.04-0.36) x10^3/uL Immature Gran # (Auto) 0.09 H (0.001-0.031) x10^3u/L Absolute Lymphs (auto) 1.15 L (1.18-3.74) x10^3/uL Absolute Monos (auto) 0.57 (0.24-0.86) x10^3/uL Absolute Nucleated RBC 0.00 (0.00-0.012) x10^3u/L Lymphocytes % 7.9 L (19.3-51.7) % Monocytes % 3.9 L (4.7-12.5) % Eosinophils % 4.0 (0.7-5.8) % Basophils % 0.3 (0.1-1.2) % Absolute Granulocytes 12.12 H (1.56-6.13) x10^3/uL Segmented Neutrophils 92 H (34.0-71.1) % Lymphocytes (Manual) 5 L (19.3-51.7) % Monocytes (Manual) 3 L (4.7-12.5) % Basophils # 0.05 (0.01-0.08) x10^3/uL Platelet Estimate NORMAL (NORMAL) RBC Morphology NORMAL PT (9.4-12.5) SECONDS INR (0.8-3.0) Puncture Site RIGHT BRACHIAL pCO2 50 H (35-45) mmHg pO2 97 (75-100) mmHg Base Excess 1.9 (-2.0-2.0) O2 Saturation 94.4 (94-100) g/dF ABG pH 7.36 (7.35-7.45) ABG HCO3 28.2 H (22-28) ABG O2 Sat (Measured) 99.2 (95-100) % Jaylan Test NOT APPLICABLE A-a Gradient 554 a/A Ratio 0.15 Hemoglobin 13.5 Carboxyhemoglobin 4.2 (0.0-6.9) % THgb Methemoglobin 0.6 L (1.4-1.5) % Potassium 4.1 4.5 (3.5-5.1) Temperature 37.0 C POC O2 Flow Rate 100 % Sodium 129 L (135-145) mmol/L Chloride 90 L (98-107) mmol/L Carbon Dioxide 30 (22-30) mmol/L Anion Gap 12.8 (5-15) MEQ/L BUN 9 (7-17) mg/dL Creatinine 0.64 (0.52-1.04) mg/dL Estimated GFR 92.7 ML/MIN Glucose 136 H (74-106) mg/dL Lactic Acid 1.5 (0.4-2.0) Calcium 9.3 (8.4-10.2) mg/dL Magnesium 1.5 L (1.6-2.3) mg/dL Total Bilirubin 0.80 (0.2-1.3) mg/dL AST 24 (14-36) U/L ALT 23 (0-35) U/L Alkaline Phosphatase 72 (38-126) U/L Troponin I (0.000-0.033) ng/mL NT-Pro-B Natriuret Pep (<300) pg/mL Serum Total Protein 7.6 (6.3-8.2) g/dL Albumin 4.2 (3.5-5.0) g/dL Influenza Type A Ag (NEGATIVE) Influenza Type B Ag (NEGATIVE) RSV (PCR) (NEGATIVE) SARS-CoV-2 (PCR) (NEGATIVE) 01/27/24 01/27/24 01/27/24 Range/Units 10:30 10:30 10:30 WBC (3.98-10.04) x10^3/uL RBC (3.93-5.22) x10^6/uL Hgb (11.2-15.7) g/dL Hct (34.1-44.9) % MCV (79.4-94.8) fL MCH (25.6-32.2) pg MCHC (32.2-35.5) g/dL RDW (11.7-14.4) % Plt Count (182-369) x10^3/uL MPV (9.4-12.3) fL Gran % (34.0-71.1) % Immature Gran % (Auto) (0.001-0.429) % Nucleat RBC Rel Count (0.00-0.2) % Eos # (Auto) (0.04-0.36) x10^3/uL Immature Gran # (Auto) (0.001-0.031) x10^3u/L Absolute Lymphs (auto) (1.18-3.74) x10^3/uL Absolute Monos (auto) (0.24-0.86) x10^3/uL Absolute Nucleated RBC (0.00-0.012) x10^3u/L Lymphocytes % (19.3-51.7) % Monocytes % (4.7-12.5) % Eosinophils % (0.7-5.8) % Basophils % (0.1-1.2) % Absolute Granulocytes (1.56-6.13) x10^3/uL Segmented Neutrophils (34.0-71.1) % Lymphocytes (Manual) (19.3-51.7) % Monocytes (Manual) (4.7-12.5) % Basophils # (0.01-0.08) x10^3/uL Platelet Estimate (NORMAL) RBC Morphology PT 12.4 (9.4-12.5) SECONDS INR 1.15 (0.8-3.0) Puncture Site pCO2 (35-45) mmHg pO2 (75-100) mmHg Base Excess (-2.0-2.0) O2 Saturation (94-100) g/dF ABG pH (7.35-7.45) ABG HCO3 (22-28) ABG O2 Sat (Measured) (95-100) % Jaylan Test A-a Gradient a/A Ratio Hemoglobin Carboxyhemoglobin (0.0-6.9) % THgb Methemoglobin (1.4-1.5) % Potassium (3.5-5.1) Temperature C POC O2 Flow Rate % Sodium (135-145) mmol/L Chloride (98-107) mmol/L Carbon Dioxide (22-30) mmol/L Anion Gap (5-15) MEQ/L BUN (7-17) mg/dL Creatinine (0.52-1.04) mg/dL Estimated GFR ML/MIN Glucose (74-106) mg/dL Lactic Acid (0.4-2.0) Calcium (8.4-10.2) mg/dL Magnesium (1.6-2.3) mg/dL Total Bilirubin (0.2-1.3) mg/dL AST (14-36) U/L ALT (0-35) U/L Alkaline Phosphatase (38-126) U/L Troponin I 0.012 (0.000-0.033) ng/mL NT-Pro-B Natriuret Pep 47225 (<300) pg/mL Serum Total Protein (6.3-8.2) g/dL Albumin (3.5-5.0) g/dL Influenza Type A Ag (NEGATIVE) Influenza Type B Ag (NEGATIVE) RSV (PCR) (NEGATIVE) SARS-CoV-2 (PCR) (NEGATIVE) 01/27/24 01/27/24 Range/Units 10:50 14:46 WBC (3.98-10.04) x10^3/uL RBC (3.93-5.22) x10^6/uL Hgb (11.2-15.7) g/dL Hct (34.1-44.9) % MCV (79.4-94.8) fL MCH (25.6-32.2) pg MCHC (32.2-35.5) g/dL RDW (11.7-14.4) % Plt Count (182-369) x10^3/uL MPV (9.4-12.3) fL Gran % (34.0-71.1) % Immature Gran % (Auto) (0.001-0.429) % Nucleat RBC Rel Count (0.00-0.2) % Eos # (Auto) (0.04-0.36) x10^3/uL Immature Gran # (Auto) (0.001-0.031) x10^3u/L Absolute Lymphs (auto) (1.18-3.74) x10^3/uL Absolute Monos (auto) (0.24-0.86) x10^3/uL Absolute Nucleated RBC (0.00-0.012) x10^3u/L Lymphocytes % (19.3-51.7) % Monocytes % (4.7-12.5) % Eosinophils % (0.7-5.8) % Basophils % (0.1-1.2) % Absolute Granulocytes (1.56-6.13) x10^3/uL Segmented Neutrophils (34.0-71.1) % Lymphocytes (Manual) (19.3-51.7) % Monocytes (Manual) (4.7-12.5) % Basophils # (0.01-0.08) x10^3/uL Platelet Estimate (NORMAL) RBC Morphology PT (9.4-12.5) SECONDS INR (0.8-3.0) Puncture Site pCO2 (35-45) mmHg pO2 (75-100) mmHg Base Excess (-2.0-2.0) O2 Saturation (94-100) g/dF ABG pH (7.35-7.45) ABG HCO3 (22-28) ABG O2 Sat (Measured) (95-100) % Jaylan Test A-a Gradient a/A Ratio Hemoglobin Carboxyhemoglobin (0.0-6.9) % THgb Methemoglobin (1.4-1.5) % Potassium (3.5-5.1) Temperature C POC O2 Flow Rate % Sodium (135-145) mmol/L Chloride (98-107) mmol/L Carbon Dioxide (22-30) mmol/L Anion Gap (5-15) MEQ/L BUN (7-17) mg/dL Creatinine (0.52-1.04) mg/dL Estimated GFR ML/MIN Glucose (74-106) mg/dL Lactic Acid (0.4-2.0) Calcium (8.4-10.2) mg/dL Magnesium (1.6-2.3) mg/dL Total Bilirubin (0.2-1.3) mg/dL AST (14-36) U/L ALT (0-35) U/L Alkaline Phosphatase (38-126) U/L Troponin I 0.017 (0.000-0.033) ng/mL NT-Pro-B Natriuret Pep (<300) pg/mL Serum Total Protein (6.3-8.2) g/dL Albumin (3.5-5.0) g/dL Influenza Type A Ag NEGATIVE (NEGATIVE) Influenza Type B Ag NEGATIVE (NEGATIVE) RSV (PCR) NEGATIVE (NEGATIVE) SARS-CoV-2 (PCR) NEGATIVE (NEGATIVE) - Radiology Impressions Radiology Exams & Impressions: Radiology Procedures Category Date Time Status CHEST 1 VIEW (PORTABLE) Stat Exams 01/27/24 13:20 Taken - Other Procedures and Tests Respiratory Therapy 01/27/24 11:32 Respiratory Therapy Assessment DAILY 01/27/24 16:19 RT Miscellaneous Order ROUTINE 01/27/24 18:14 Oxygen Nasal Cannula 4 lpm 01/28/24 07:00 Respiratory MDI UD Telemedicine Encounter - Telemedicine Encounter Telemedicine Encounter: "The entirety of this encounter was performed via Telemedicine" This visit was performed using real-time audio and video connection between my location and thepatients locationwith the assistance of a surrogateat the patients location. Written or verbal consent was obtained from the patient/guar anthony to perform this visit using[employer] technology. Any patient questions regarding the telemedicine interaction were answered. ROHIT Encounter - ROHIT Encounter Attestation ROHIT Encounter Attestation: "ANISHA Manuel andtaiiscussed pertinent aspects of their care with Rusty Green agree with the history, physical exam (any modifications based on my personal exam will be noted below), assessment, and plan as outlined in original note. Please see imm ediately below for my summary of findings and additional assessment and plan along with any meaningful corrections/explanations to the Subjective/Objective portions of the ROHIT note will be noted." My portion of the encounter took place via telemedicine. -Patient admitted with dyspnea and hypoxia, found to have pneumonia, COPD exacerbation and acute on chronic CHF. Patient does not know her EF but suspect low since patient is on digoxin. Admit for IV antibiotics, IV steroids and IV lasix, oxygen support.
[2024-01-27] MEDS: COMBIVENT RESPIMAT COMMON CANISTER IH SCH (18:10)
[2024-01-27] MEDS: TYLENOL 325 MG PO PRN (19:17)
[2024-01-27] MEDS: DUONEB 0.5-3 MG/3 ml Neb IH SCH (19:26)
--- NOTE | 2024-01-27 20:46 | XRAY ---
Indication: Cough. Short of breath. Comparison: None Portable chest hyperinflated with minimal bibasilar infiltrates versus atelectasis. Upper lungs clear. Heart borderline enlarged. Bony thorax intact with osteopenia, mild degenerative changes, and mild double curvature scoliosis.
[2024-01-27] MEDS: COREG 12.5 MG PO SCH (21:30)
[2024-01-27] MEDS: solu-MEDROL 40 MG, Sterile H2O 10 ml 1 ML IV SCH (21:30)
[2024-01-27] MEDS ORDERED: Advair Hfa 115/21 Common canister IH SCH (22:00)
[2024-01-28 06:32] LABS: Absolute Neutrophil Ct (ANC) 6.04 x10^3/uL (1.56-6.13); BASOPHIL % 0.1 % (0.1-1.2); Basophil (Absolute #) 0.01 x10^3/uL (0.01-0.08); Eosinophil (Absolute #) 0 x10^3/uL (0.04-0.36); Hematocrit 37.1 % (34.1-44.9); Hemoglobin 12.6 g/dL (11.2-15.7); IMMATURE GRAN # 0.02 x10^3u/L (0.001-0.031); IMMATURE GRAN % 0.3 % (0.001-0.429); Lymphocyte (Absolute #) 0.81 x10^3/uL (1.18-3.74); Lymphocytes % 11.5 % (19.3-51.7); Mean Cell Volume 84.3 fL (79.4-94.8); Mean Corpuscular Hemoglobin 28.6 pg (25.6-32.2); Monocyte (Absolute #) 0.17 x10^3/uL (0.24-0.86); Monocytes % 2.4 % (4.7-12.5); Neutrophil % 85.7 % (34.0-71.1); Platelet Count 293 x10^3/uL (182-369); Red Cell Distribution Width 13.2 % (11.7-14.4); White Blood Count 7.1 x10^3/uL (3.98-10.04)
[2024-01-28 06:56] LABS: ALBUMIN 3.6 g/dL (3.5-5.0); ANION GAP 9.5 MEQ/L (5-15); BILIRUBIN,TOTAL 0.5 mg/dL (0.2-1.3); Calcium 8.8 mg/dL (8.4-10.2); Creatinine 1 0.73 mg/dL (0.52-1.04); EST GLOMERULAR FILTRATION RATE 86.2 ML/MIN; MAGNESIUM 1.6 mg/dL (1.6-2.3); Total Protein 6.6 g/dL (6.3-8.2)
[2024-01-28] MEDS ORDERED: DUONEB 0.5-3 MG/3 ml Neb IH ONE (07:30)
[2024-01-28] MEDS: PATIENT OWN MEDICATION IH SCH (07:47)
[2024-01-28] MEDS ORDERED: PATIENT OWN MEDICATION IH SCH (08:15)
[2024-01-28] MEDS: SODIUM CHLORIDE PO SCH (08:32)
--- NOTE | 2024-01-28 08:50 | PCM.DS ---
Discharge Summary Date of Admission: 01/27/24 15:53 Date of Discharge: 01/28/24 Admitting Physician: ÓSCAR SOLANO MD Primary Care Provider: BONIFACIO ROSALES Allergies Allergies Penicillins Allergy (Verified 01/27/24 09:59) Hospital Summary - Hospital Course Hospital Course: 01/27/24 is a 73 year old female with PMHX of HTN, COPD, asthma, hypothyroidism, OA, and daily smoker. Patient does see a auto mechanic, Dr. Owen Valerio. She arrived to ER today with worsening shortness of breath and cough over the last week. At home, the patient stated that she could not lie down because of her shortness of breath. The oxygen saturations on room air at home were in the 60s per patient and daughter. On arrival to the emergency department, the patient was placed on oxygen, initially via mask then nasal cannula. The oxygen saturation levels then increased to 99 to 100%. Patient has had a nonproductive cough she denies chest pain. She has not had a fever at home. Patient states that she does have a history of COPD and continues to s moke tobacco cigarettes. In ER she was started on Lasix, Levaquin, steroids, and duonebs for COPD, CHF exacerbation- will continue. WBC 14.6, she is on 4lNC 93% and does not wear O2 at baseline. She continues to have SOB on admission. She states she will stay 1 night and she will leave tomorrow, either we release her or she will leave AMA. She is refusing a nicotine patch. Discussed we will re-evaluate in AM. 01/28/24 Pt sitting up in bed. She is wanting to d/c today. She is still requiring O2 at 4lNC. Lung sounds are clear. Will have RT eval for home O2. She states she has had O2 at home in the past and for some unknown reason it was taken out of her home. She thinks she has probably needed it for a while now, prior to admission. Na+ 126 this AM fluid restriction started, continue lasix- likely SIADH. Pt is agreeable this afternoon to having lab rechecked and if improved will d/c then. Discussed she will need close f/u of labs OP with PCP. She states she feels much better today and is ready to d/c. - Vitals & Intake/Output Vital Signs: Vital Signs Temperature 98.6 F 01/28/24 07:30 Pulse Rate 84 01/28/24 07:45 Respiratory Rate 20 01/28/24 07:45 Blood Pressure 132/77 01/28/24 07:30 O2 Sat by Pulse Oximetry 91 L 01/28/24 07:45 Intake & Output: Intake & Output 01/25/24 01/26/24 01/27/24 01/28/24 11:59 11:59 11:59 11:59 Intake Total 600 Balance 600 Weight 50.6 kg 48.5 kg - Lab Result Diagrams: 01/28/24 06:08 01/28/24 06:08 Lab Results-Last 24 Hrs: Lab Results-Last 24 Hours 01/27/24 01/27/24 01/27/24 Range/Units 10:14 10:30 10:30 WBC 14.6 H (3.98-10.04) x10^3/uL RBC 4.61 (3.93-5.22) x10^6/uL Hgb 13.4 (11.2-15.7) g/dL Hct 39.8 (34.1-44.9) % MCV 86.3 (79.4-94.8) fL MCH 29.1 (25.6-32.2) pg MCHC 33.7 (32.2-35.5) g/dL RDW 13.3 (11.7-14.4) % Plt Count 331 (182-369) x10^3/uL MPV 8.9 L (9.4-12.3) fL Gran % 83.3 H (34.0-71.1) % Immature Gran % (Auto) 0.6 H (0.001-0.429) % Nucleat RBC Rel Count 0.0 (0.00-0.2) % Eos # (Auto) 0.58 H (0.04-0.36) x10^3/uL Immature Gran # (Auto) 0.09 H (0.001-0.031) x10^3u/L Absolute Lymphs (auto) 1.15 L (1.18-3.74) x10^3/uL Absolute Monos (auto) 0.57 (0.24-0.86) x10^3/uL Absolute Nucleated RBC 0.00 (0.00-0.012) x10^3u/L Lymphocytes % 7.9 L (19.3-51.7) % Monocytes % 3.9 L (4.7-12.5) % Eosinophils % 4.0 (0.7-5.8) % Basophils % 0.3 (0.1-1.2) % Absolute Granulocytes 12.12 H (1.56-6.13) x10^3/uL Segmented Neutrophils 92 H (34.0-71.1) % Lymphocytes (Manual) 5 L (19.3-51.7) % Monocytes (Manual) 3 L (4.7-12.5) % Basophils # 0.05 (0.01-0.08) x10^3/uL Platelet Estimate NORMAL (NORMAL) RBC Morphology NORMAL PT (9.4-12.5) SECONDS INR (0.8-3.0) Puncture Site RIGHT BRACHIAL pCO2 50 H (35-45) mmHg pO2 97 (75-100) mmHg Base Excess 1.9 (-2.0-2.0) O2 Saturation 94.4 (94-100) g/dF ABG pH 7.36 (7.35-7.45) ABG HCO3 28.2 H (22-28) ABG O2 Sat (Measured) 99.2 (95-100) % Jaylan Test NOT APPLICABLE A-a Gradient 554 a/A Ratio 0.15 Hemoglobin 13.5 Carboxyhemoglobin 4.2 (0.0-6.9) % THgb Methemoglobin 0.6 L (1.4-1.5) % Potassium 4.1 4.5 (3.5-5.1) Temperature 37.0 C POC O2 Flow Rate 100 % Sodium 129 L (135-145) mmol/L Chloride 90 L (98-107) mmol/L Carbon Dioxide 30 (22-30) mmol/L Anion Gap 12.8 (5-15) MEQ/L BUN 9 (7-17) mg/dL Creatinine 0.64 (0.52-1.04) mg/dL Estimated GFR 92.7 ML/MIN Glucose 136 H (74-106) mg/dL Lactic Acid 1.5 (0.4-2.0) Calcium 9.3 (8.4-10.2) mg/dL Magnesium 1.5 L (1.6-2.3) mg/dL Total Bilirubin 0.80 (0.2-1.3) mg/dL AST 24 (14-36) U/L ALT 23 (0-35) U/L Alkaline Phosphatase 72 (38-126) U/L Troponin I (0.000-0.033) ng/mL NT-Pro-B Natriuret Pep (<300) pg/mL Serum Total Protein 7.6 (6.3-8.2) g/dL Albumin 4.2 (3.5-5.0) g/dL Influenza Type A Ag (NEGATIVE) Influenza Type B Ag (NEGATIVE) RSV (PCR) (NEGATIVE) SARS-CoV-2 (PCR) (NEGATIVE) 01/27/24 01/27/24 01/27/24 Range/Units 10:30 10:30 10:30 WBC (3.98-10.04) x10^3/uL RBC (3.93-5.22) x10^6/uL Hgb (11.2-15.7) g/dL Hct (34.1-44.9) % MCV (79.4-94.8) fL MCH (25.6-32.2) pg MCHC (32.2-35.5) g/dL RDW (11.7-14.4) % Plt Count (182-369) x10^3/uL MPV (9.4-12.3) fL Gran % (34.0-71.1) % Immature Gran % (Auto) (0.001-0.429) % Nucleat RBC Rel Count (0.00-0.2) % Eos # (Auto) (0.04-0.36) x10^3/uL Immature Gran # (Auto) (0.001-0.031) x10^3u/L Absolute Lymphs (auto) (1.18-3.74) x10^3/uL Absolute Monos (auto) (0.24-0.86) x10^3/uL Absolute Nucleated RBC (0.00-0.012) x10^3u/L Lymphocytes % (19.3-51.7) % Monocytes % (4.7-12.5) % Eosinophils % (0.7-5.8) % Basophils % (0.1-1.2) % Absolute Granulocytes (1.56-6.13) x10^3/uL Segmented Neutrophils (34.0-71.1) % Lymphocytes (Manual) (19.3-51.7) % Monocytes (Manual) (4.7-12.5) % Basophils # (0.01-0.08) x10^3/uL Platelet Estimate (NORMAL) RBC Morphology PT 12.4 (9.4-12.5) SECONDS INR 1.15 (0.8-3.0) Puncture Site pCO2 (35-45) mmHg pO2 (75-100) mmHg Base Excess (-2.0-2.0) O2 Saturation (94-100) g/dF ABG pH (7.35-7.45) ABG HCO3 (22-28) ABG O2 Sat (Measured) (95-100) % Jaylan Test A-a Gradient a/A Ratio Hemoglobin Carboxyhemoglobin (0.0-6.9) % THgb Methemoglobin (1.4-1.5) % Potassium (3.5-5.1) Temperature C POC O2 Flow Rate % Sodium (135-145) mmol/L Chloride (98-107) mmol/L Carbon Dioxide (22-30) mmol/L Anion Gap (5-15) MEQ/L BUN (7-17) mg/dL Creatinine (0.52-1.04) mg/dL Estimated GFR ML/MIN Glucose (74-106) mg/dL Lactic Acid (0.4-2.0) Calcium (8.4-10.2) mg/dL Magnesium (1.6-2.3) mg/dL Total Bilirubin (0.2-1.3) mg/dL AST (14-36) U/L ALT (0-35) U/L Alkaline Phosphatase (38-126) U/L Troponin I 0.012 (0.000-0.033) ng/mL NT-Pro-B Natriuret Pep 92048 (<300) pg/mL Serum Total Protein (6.3-8.2) g/dL Albumin (3.5-5.0) g/dL Influenza Type A Ag (NEGATIVE) Influenza Type B Ag (NEGATIVE) RSV (PCR) (NEGATIVE) SARS-CoV-2 (PCR) (NEGATIVE) 01/27/24 01/27/24 01/27/24 Range/Units 10:50 14:46 19:08 WBC (3.98-10.04) x10^3/uL RBC (3.93-5.22) x10^6/uL Hgb (11.2-15.7) g/dL Hct (34.1-44.9) % MCV (79.4-94.8) fL MCH (25.6-32.2) pg MCHC (32.2-35.5) g/dL RDW (11.7-14.4) % Plt Count (182-369) x10^3/uL MPV (9.4-12.3) fL Gran % (34.0-71.1) % Immature Gran % (Auto) (0.001-0.429) % Nucleat RBC Rel Count (0.00-0.2) % Eos # (Auto) (0.04-0.36) x10^3/uL Immature Gran # (Auto) (0.001-0.031) x10^3u/L Absolute Lymphs (auto) (1.18-3.74) x10^3/uL Absolute Monos (auto) (0.24-0.86) x10^3/uL Absolute Nucleated RBC (0.00-0.012) x10^3u/L Lymphocytes % (19.3-51.7) % Monocytes % (4.7-12.5) % Eosinophils % (0.7-5.8) % Basophils % (0.1-1.2) % Absolute Granulocytes (1.56-6.13) x10^3/uL Segmented Neutrophils (34.0-71.1) % Lymphocytes (Manual) (19.3-51.7) % Monocytes (Manual) (4.7-12.5) % Basophils # (0.01-0.08) x10^3/uL Platelet Estimate (NORMAL) RBC Morphology PT (9.4-12.5) SECONDS INR (0.8-3.0) Puncture Site pCO2 (35-45) mmHg pO2 (75-100) mmHg Base Excess (-2.0-2.0) O2 Saturation (94-100) g/dF ABG pH (7.35-7.45) ABG HCO3 (22-28) ABG O2 Sat (Measured) (95-100) % Jaylan Test A-a Gradient a/A Ratio Hemoglobin Carboxyhemoglobin (0.0-6.9) % THgb Methemoglobin (1.4-1.5) % Potassium (3.5-5.1) Temperature C POC O2 Flow Rate % Sodium (135-145) mmol/L Chloride (98-107) mmol/L Carbon Dioxide (22-30) mmol/L Anion Gap (5-15) MEQ/L BUN (7-17) mg/dL Creatinine (0.52-1.04) mg/dL Estimated GFR ML/MIN Glucose (74-106) mg/dL Lactic Acid (0.4-2.0) Calcium (8.4-10.2) mg/dL Magnesium (1.6-2.3) mg/dL Total Bilirubin (0.2-1.3) mg/dL AST (14-36) U/L ALT (0-35) U/L Alkaline Phosphatase (38-126) U/L Troponin I 0.017 < 0.012 (0.000-0.033) ng/mL NT-Pro-B Natriuret Pep (<300) pg/mL Serum Total Protein (6.3-8.2) g/dL Albumin (3.5-5.0) g/dL Influenza Type A Ag NEGATIVE (NEGATIVE) Influenza Type B Ag NEGATIVE (NEGATIVE) RSV (PCR) NEGATIVE (NEGATIVE) SARS-CoV-2 (PCR) NEGATIVE (NEGATIVE) 01/28/24 01/28/24 Range/Units 06:08 06:08 WBC 7.1 (3.98-10.04) x10^3/uL RBC 4.40 (3.93-5.22) x10^6/uL Hgb 12.6 (11.2-15.7) g/dL Hct 37.1 (34.1-44.9) % MCV 84.3 (79.4-94.8) fL MCH 28.6 (25.6-32.2) pg MCHC 34.0 (32.2-35.5) g/dL RDW 13.2 (11.7-14.4) % Plt Count 293 (182-369) x10^3/uL MPV 9.0 L (9.4-12.3) fL Gran % 85.7 H (34.0-71.1) % Immature Gran % (Auto) 0.3 (0.001-0.429) % Nucleat RBC Rel Count 0.0 (0.00-0.2) % Eos # (Auto) 0 L (0.04-0.36) x10^3/uL Immature Gran # (Auto) 0.02 (0.001-0.031) x10^3u/L Absolute Lymphs (auto) 0.81 L (1.18-3.74) x10^3/uL Absolute Monos (auto) 0.17 L (0.24-0.86) x10^3/uL Absolute Nucleated RBC 0.00 (0.00-0.012) x10^3u/L Lymphocytes % 11.5 L (19.3-51.7) % Monocytes % 2.4 L (4.7-12.5) % Eosinophils % 0.0 L (0.7-5.8) % Basophils % 0.1 (0.1-1.2) % Absolute Granulocytes 6.04 (1.56-6.13) x10^3/uL Segmented Neutrophils (34.0-71.1) % Lymphocytes (Manual) (19.3-51.7) % Monocytes (Manual) (4.7-12.5) % Basophils # 0.01 (0.01-0.08) x10^3/uL Platelet Estimate (NORMAL) RBC Morphology PT (9.4-12.5) SECONDS INR (0.8-3.0) Puncture Site pCO2 (35-45) mmHg pO2 (75-100) mmHg Base Excess (-2.0-2.0) O2 Saturation (94-100) g/dF ABG pH (7.35-7.45) ABG HCO3 (22-28) ABG O2 Sat (Measured) (95-100) % Jaylan Test A-a Gradient a/A Ratio Hemoglobin Carboxyhemoglobin (0.0-6.9) % THgb Methemoglobin (1.4-1.5) % Potassium 4.0 (3.5-5.1) Temperature C POC O2 Flow Rate % Sodium 126 L (135-145) mmol/L Chloride 89 L (98-107) mmol/L Carbon Dioxide 32 H (22-30) mmol/L Anion Gap 9.5 (5-15) MEQ/L BUN 16 (7-17) mg/dL Creatinine 0.73 (0.52-1.04) mg/dL Estimated GFR 86.2 ML/MIN Glucose 134 H (74-106) mg/dL Lactic Acid (0.4-2.0) Calcium 8.8 (8.4-10.2) mg/dL Magnesium 1.6 (1.6-2.3) mg/dL Total Bilirubin 0.50 (0.2-1.3) mg/dL AST 17 (14-36) U/L ALT 13 (0-35) U/L Alkaline Phosphatase 66 (38-126) U/L Troponin I (0.000-0.033) ng/mL NT-Pro-B Natriuret Pep 83861 (<300) pg/mL Serum Total Protein 6.6 (6.3-8.2) g/dL Albumin 3.6 (3.5-5.0) g/dL Influenza Type A Ag (NEGATIVE) Influenza Type B Ag (NEGATIVE) RSV (PCR) (NEGATIVE) SARS-CoV-2 (PCR) (NEGATIVE) - Radiology Exams Ordered Rad Exams-Entire Visit: Radiology Procedures Category Date Time Status CHEST 1 VIEW (PORTABLE) Stat Exams 01/27/24 13:20 Completed - Procedures and Test Procedures and Tests throughout Hospitalization: Therapy Orders & Screens 01/27/24 11:32 Respiratory Therapy Assessment DAILY Comment: 01/27/24 16:15 RT Screen per Nursing Assess ONCE Comment: Protocol Order Physician Instructions: Greater than 3 points order RT Admission Screen Reason For Exam: Triggered on Admission Diagnosis: Hypoxia Diagnosis: Hypoxia Pneumonia: Yes Home O2: No Asthma: Yes CHF: Yes Home CPAP/BIPAP: No Home Nebs/MDI: Yes Total Points: 15 Smoking Cessation Education ONCE Comment: Diagnosis: Hypoxia Smoking Status: Current every day smoker How long have you smoked: 25+ YEARS Approximately how many cigarettes per day: 2 ST Screen per Nursing Assess ONCE Comment: Protocol Order Physician Instructions: Greater than [address] Admission Screening Reason For Exam: Triggered on Admission Diagnosis: Hypoxia CVA/Dyshpagia/Aphasia: No Cognitive Deficits: No Dehydration/Nutrition Deficit: No Reflux: No Oral-Motor Difficulties: No Pneumonia: Yes Long Term Resident: No Total Points: 5 01/27/24 16:19 RT Miscellaneous Order ROUTINE Comment: Physician Instructions: Reason For Exam: Eval and treat keep O2 > 92% Diagnosis: Hypoxia 01/27/24 18:14 Oxygen Nasal Cannula 4 lpm Comment: Diagnosis: Hypoxia 01/28/24 07:00 Respiratory MDI UD Comment: Diagnosis: Hypoxia 01/28/24 08:44 RT Miscellaneous Order ROUTINE Comment: pt wants to d/c today Physician Instructions: Reason For Exam: RT eval for home O2 Diagnosis: Hypoxia Discharge Exam General Appearance: no apparent distress, alert Neurologic Exam: alert, oriented x 3, cooperative, normal mood/affect, nml cerebellar function, sensation nml, No motor deficits Eye Exam: PERRL, EOMI, eyes nml inspection Ears, Nose, Throat Exam: normal ENT inspection, pharynx normal, moist mucous membranes Neck Exam: normal inspection, non-tender, supple, full range of motion Respiratory Exam: normal breath sounds, lungs clear, No respiratory distress Cardiovascular Exam: regular rate/rhythm, normal heart sounds Gastrointestinal/Abdomen Exam: soft, No tenderness, No mass Pelvic Exam: deferred Rectal Exam: deferred Back Exam: normal inspection, normal range of motion, No CVA tenderness, No vertebral tenderness Extremity Exam: normal inspection, normal range of motion Skin Exam: normal color, warm, dry Final Diagnosis/Problem List - Final Discharge Diagnosis/Problem (1) COPD exacerbation Current Visit: Yes Status: Acute Code(s): J44.1 - CHRONIC OBSTRUCTIVE PULMONARY DISEASE W (ACUTE) EXACERBATION (2) Hypomagnesemia Current Visit: Yes Status: Acute Code(s): E83.42 - HYPOMAGNESEMIA (3) Hyponatremia Current Visit: Yes Status: Acute Code(s): E87.1 - HYPO-OSMOLALITY AND HYPONATREMIA (4) HTN (hypertension) Current Visit: Yes Status: Chronic Code(s): I10 - ESSENTIAL (PRIMARY) HYPERTENSION (5) CHF (congestive heart failure) Current Visit: Yes Status: Acute Code(s): I50.9 - HEART FAILURE, UNSPECIFIED (6) Pneumonia Current Visit: Yes Status: Acute Code(s): J18.9 - PNEUMONIA, UNSPECIFIED ORGANISM (7) Hyperlipidemia Current Visit: Yes Status: Chronic Code(s): E78.5 - HYPERLIPIDEMIA, UNSPECIFIED (8) Smoker Current Visit: Yes Status: Chronic Code(s): F17.200 - NICOTINE DEPENDENCE, UNSPECIFIED, UNCOMPLICATED (9) Hypothyroidism Current Visit: Yes Status: Chronic Assessment & Plan: (1) COPD exacerbation Current Visit: Yes Status: Acute Assessment & Plan: - Duonebs, Levaquin, Steriods- started in ER Continue - Continue home advair, trelogy - CXR pending - CBC, CMP reviewed. - RT eval and treat keep O2> 92% 01/27 - Lung sounds clear - CBC, CMP reviewed - ON 4lNC - 90%- baseline RA - pt reports needing home O2 in the past - RT eval for home O2 Code(s): J44.1 - CHRONIC OBSTRUCTIVE PULMONARY DISEASE W (ACUTE) EXACERBATION (2) Hypomagnesemia Current Visit: Yes Status: Acute Assessment & Plan: - Mg+ 1.5- replaced- trend 01/27 - Mg+ 1.6- improved Code(s): E83.42 - HYPOMAGNESEMIA (3) Hyponatremia Current Visit: Yes Status: Acute Assessment & Plan: - Na+ 129- trend - No N/V/D. 01/27 - Na+ 126 - fluid restriction,Continue lasix, - recheck lab this afternoon- if ok will d/c. - Likely SIADH- will need OP lab f/u with further eval- pt wanting to leave today Code(s): E87.1 - HYPO-OSMOLALITY AND HYPONATREMIA (4) HTN (hypertension) Current Visit: Yes Status: Chronic Assessment & Plan: - Continue home meds - trend BP - BP stable Code(s): I10 - ESSENTIAL (PRIMARY) HYPERTENSION (5) CHF (congestive heart failure) Current Visit: Yes Status: Acute Assessment & Plan: - Lasix IV gave in ER- continue 20 IV daily - No previous Echo on file to review - Unable to obtain echo on the weekends - BNP 45486- no previous labs to review - heart healthy diet 01/27 - BNP 73852- improved Code(s): I50.9 - HEART FAILURE, UNSPECIFIED (6) Pneumonia Current Visit: Yes Status: Acute Assessment & Plan: - Per ER physician - IV antibiotic, steroids, duonebs, advair, trelogy - CXR reviewed- minimal bilbasilir infiltrates - WBC 14.6 - Flu/ COVID/RSV negative 12/1 - WBC WNL Code(s): J18.9 - PNEUMONIA, UNSPECIFIED ORGANISM (7) Hyperlipidemia Current Visit: Yes Status: Chronic Assessment & Plan: - Continue statin Code(s): E78.5 - HYPERLIPIDEMIA, UNSPECIFIED (8) Smoker Current Visit: Yes Status: Chronic Assessment & Plan: - refused nicotine patch - refuses to quit - advised cessation Code(s): F17.200 - NICOTINE DEPENDENCE, UNSPECIFIED, UNCOMPLICATED (9) Hypothyroidism Current Visit: Yes Status: Chronic Assessment & Plan: - continue synthroid Code(s): E03.9 - HYPOTHYROIDISM, UNSPECIFIED - Discharge Discharge Date: 01/28/24 Disposition: Home, Self-Care Condition: Stable Prescriptions: New Prednisone 20 mg [Deltasone 20 mg] 20 mg PO BID #10 tablet levoFLOXacin [Levofloxacin] 750 mg PO DAILY 5 Days #5 tablet Continue Fluticasone/Umeclidin/Vilanter [Trelegy Ellipta 100-62.5-25] 1 dose IH DAILY Albuterol 8 gm Mdi Hfa [Ventolin Hfa MDI] 2 puff IH Q4HPRN PRN PRN Reason: Shortness Of Breath/Wheezing Fluticasone/Salmeterol 115/21 [Advair Hfa 115/21 Common canister*] 2 puff IH BID Ipratropium/Albuterol Sulfate [Combivent Respimat Common Canister] 1 puff IH QID Atorvastatin Calcium [Lipitor] 20 mg PO DAILY Digoxin [Lanoxin] 250 mcg PO DAILY Thyroid,Pork [Creamery Worker Thyroid] 30 mg PO DAILY Prednisone 5 mg [Deltasone 5 mg] 5 mg PO DAILY Ranolazine 500 MG [Ranexa 500 MG] 500 mg PO DAILY Carvedilol 12.5 mg [Coreg 12.5 mg] 12.5 mg PO QHS Fexofenadine/Pseudoephedrine [Fexofenadine-Pse ER 180-240 Tb] 1 each PO DAILY Carvedilol [Coreg ] 6.25 mg PO DAILY Follow up with: BONIFACIO ROSALES MD [Primary Care Provider] -
[2024-01-28] MEDS: LEVOFLOXACIN 750MG/150ML D5W 750 MG/150 ML BAG IV SCH (09:44)
[2024-01-28] MEDS: Ranexa 500 MG PO SCH (09:44)
[2024-01-28] MEDS: Protonix 20MG Tablet PO SCH (09:44)
[2024-01-28] MEDS: NON-FORMULARY ITEM PO SCH (09:45)
[2024-01-28] MEDS: Lanoxin 0.125MG TABLET PO SCH (09:51)
[2024-01-28] MEDS: ENOXAPARIN SODIUM SQ SCH (09:59)
[2024-01-28] MEDS ORDERED: Lasix 20 MG/2 ML IV SCH (10:00)
[2024-01-28] MEDS ORDERED: THYROID PORK 15 MG PO SCH (10:00)
[2024-01-28] MEDS ORDERED: NON-FORMULARY ITEM (Atorvastatin Calcium [Lipitor] 20 MG Tablet) PO SCH (10:00)
[2024-01-28] MEDS ORDERED: Lanoxin 0.125MG TABLET PO SCH (10:00)
[2024-01-28] MEDS ORDERED: NON-FORMULARY ITEM (Fluticasone/Umeclidin/Vilanter [Trelegy Ellipta 100-62.5-25] 1 EACH Bl IH SCH (10:00)
[2024-01-28] MEDS ORDERED: DIGOXIN 250 MCG PO SCH (10:00)
[2024-01-28 11:36] VITALS: BP 132/60; PULSE 86; RESP 26; TEMP 97.8; O2SAT 96
[2024-01-28] MEDS: Lasix 40 MG PO SCH (12:18)
[2024-01-28] MEDS ORDERED: MAG-OX 400 PO ONE (16:10)
[2024-01-28] MEDS ORDERED: ZOCOR 20MG PO SCH (22:00)
== END 2024-01-28 13:59 | disposition home or self-care (01) ==
LOC: ED 09:58 → MED SURG 15:53
PROVIDERS: ADMIT Internal Medicine; ATTEND Internal Medicine
DX: J44.1 Chronic obstructive pulmonary disease with (acute) exacerbation (principal); E83.42 Hypomagnesemia; E87.1 Hypo-osmolality and hyponatremia; I11.0 Hypertensive heart disease with heart failure; I50.9 Heart failure, unspecified; J18.9 Pneumonia, unspecified organism; E78.5 Hyperlipidemia, unspecified; F17.200 Nicotine dependence, unspecified, uncomplicated; E03.9 Hypothyroidism, unspecified; Z79.899 Other long term (current) drug therapy
CPT/HCPCS: 0241U; 36415; 36600; 71045; 80053; 82375; 82803; 83605; 83735; 83880; 84295; 84484; 85025; 85610; 87040; 93005; 93041; 93268; 94640; 94760; 96365; 96374; 96375; 99291; G0378; Q3014; 99285; J1940; J1956; J2919; A9270-GY

== ENCOUNTER 2024-02-06 19:08 | Observation (INO) | payer MEDICARE ==
[2024-02-06 19:46] LABS: Hematocrit 43.2 % (34.1-44.9); Hemoglobin 13.4 g/dL (11.2-15.7); Mean Cell Volume 91.1 fL (79.4-94.8); Mean Corpuscular Hemoglobin 28.3 pg (25.6-32.2); Platelet Count 256 x10^3/uL (182-369); Red Blood Count 4.74 x10^6/uL (3.93-5.22); Red Cell Distribution Width 13.7 % (11.7-14.4); White Blood Count 14.7 x10^3/uL (3.98-10.04)
[2024-02-06] MEDS ORDERED: DUONEB 0.5-3 MG/3 ml Neb IH ONE (19:48)
[2024-02-06 19:52] LABS: ALBUMIN 3.8 g/dL (3.5-5.0); BILIRUBIN,TOTAL 0.6 mg/dL (0.2-1.3); Creatinine 1 0.66 mg/dL (0.52-1.04); Potassium 5.1 mmol/L (3.5-5.1); Total Protein 6.5 g/dL (6.3-8.2)
[2024-02-06] MEDS: PROVENTIL 2.5 MG/3 ML NEB IH ONE (20:00)
[2024-02-06] MEDS ORDERED: PROVENTIL 2.5 MG/3 ML NEB IH ONE (20:02)
[2024-02-06 20:04] LABS: ANION GAP 13.1 MEQ/L (5-15)
--- NOTE | 2024-02-06 20:06 | ERPHSYRPT ---
- History of Present Illness Time Seen by Provider: 02/06/24 19:30 Source: patient Exam Limitations: no limitations Patient Subjective Stated Complaint: Pt states "I can't breath." Triage Nursing Assessment: Pt presented alert and oriented X3, skin wpd. Pt able to speak in three to four word sentences. Pt has audible rhales noted. Physician History: 73-year-old female current smoker history of COPD asthma CHF presents to our ED for evaluation of shortness of breath. Patient reports she was recently started on oxygen nasal cannula. Patient uses 4 L 24 hours/day. Patient's shortness of breath has been progressive over the past couple days. No associated nausea vomiting or diaphoresis. No active pain. Symptoms are mild to moderate in intensity. No specific worsening improving factors. Symptoms are worse with exertion. Symptoms improved with rest. Patient also reports a cough. Patient cough in our ED. The cough is wet sounding but nonproductive. Daughter at bedside. They voiced no other complaints or concerns at this time. Portions of this note were created with voice recognition technology. There may be grammatical, spelling, punctuation or sound alike errors Timing/Duration: day(s) Severity: moderate Modifying Factors: Improves With: nothing Associated Symptoms: cough, No fever Allergies/Adverse Reactions: Penicillins Allergy (Verified 01/27/24 09:59) Home Medications: Albuterol 8 gm Mdi Hfa [Ventolin Hfa MDI] 2 puff IH Q4HPRN PRN 01/27/24 [History] Atorvastatin Calcium [Lipitor] 20 mg PO DAILY 01/27/24 [History] Carvedilol [Coreg ] 6.25 mg PO DAILY 01/27/24 [History] Carvedilol 12.5 mg [Coreg 12.5 mg] 12.5 mg PO QHS 01/27/24 [History] Digoxin [Lanoxin] 250 mcg PO DAILY 01/27/24 [History] Fexofenadine/Pseudoephedrine [Fexofenadine-Pse ER 180-240 Tb] 1 each PO DAILY 01/27/24 [History] Fluticasone/Salmeterol 115/21 [Advair Hfa 115/21 Common canister*] 2 puff IH BID 01/27/24 [History] Fluticasone/Umeclidin/Vilanter [Trelegy Ellipta 100-62.5-25] 1 dose IH DAILY 01/27/24 [History] Ipratropium/Albuterol Sulfate [Combivent Respimat Common Canister] 1 puff IH QID 01/27/24 [History] Prednisone 5 mg [Deltasone 5 mg] 5 mg PO DAILY 01/27/24 [History] Ranolazine 500 MG [Ranexa 500 MG] 500 mg PO DAILY 01/27/24 [History] Thyroid,Pork [[employer] Thyroid] 30 mg PO DAILY 01/27/24 [History] Hx Influenza Vaccination/Date Given: No Hx Pneumococcal Vaccination/Date Given: No Immunizations Up to Date: No Travel Risk - International Travel Have you traveled outside of the country in past 3 weeks: No - Emerging Infectious Disease Are you exhibiting symptoms associated with any current EIDs: No Symptoms: Cough: New Onset, Shortness of Breath - Review of Systems Constitutional: No Symptoms, No Fever, No Chills Eyes: No Symptoms Ears, Nose, & Throat: No Symptoms Respiratory: No Symptoms, No Cough, No Dyspnea Cardiac: No Symptoms, No Chest Pain, No Edema, No Syncope Abdominal/Gastrointestinal: No Symptoms, No Abdominal Pain, No Nausea, No Vomiting, No Diarrhea Genitourinary Symptoms: No Symptoms, No Dysuria Musculoskeletal: No Symptoms, No Back Pain, No Neck Pain Skin: No Symptoms, No Rash Neurological: No Symptoms, No Dizziness, No Focal Weakness, No Sensory Changes Psychological: No Symptoms Endocrine: No Symptoms Hematologic/Lymphatic: No Symptoms Immunological/Allergic: No Symptoms All Other Systems: Reviewed and Negative - Past Medical History Pertinent Past Medical History: Yes Neurological History: No Pertinent History ENT History: Cataracts Cardiac History: Hypertension Respiratory History: Asthma, COPD Endocrine Medical History: Hypothyroidism Musculoskeletal History: Arthritis GI Medical History: No Pertinent History History: No Pertinent History Psycho-Social History: No Pertinent History Female Reproductive Disorders: No Pertinent History - Past Surgical History Past Surgical History: Yes Neuro Surgical History: No Pertinent History Cardiac: No Pertinent History Respiratory: No Pertinent History Gastrointestinal: Cholecystectomy Genitourinary: No Pertinent History Musculoskeletal: No Pertinent History Female Surgical History: Dilation & Curettage Significant Family History: no pertinent family hx - Social History Smoking Status: Current every day smoker How long have you smoked: 25+ YEARS Exposure to second hand smoke: No Drug Use: none - Social Determinants of Health Will the patient participate in the screening: Yes Do you worry about a steady place to live?: No Do you have any problems with any of the following?: No known problems In the past 12 months,have you had to go without utilities?: No Transportation Issues: No Has anyone in your support network made you feel unsafe?: No Have you or anyone in your house had to go without enough: No - Nursing Vital Signs Nursing Vital Signs: Initial Vital Signs Temperature 98.2 F 02/06/24 19:08 Pulse Rate 103 H 02/06/24 19:08 Respiratory Rate 30 H 02/06/24 19:08 Blood Pressure 185/100 02/06/24 19:08 O2 Sat by Pulse Oximetry 95 02/06/24 19:08 Pain Scale Pain Intensity 0 - Physical Exam General Appearance: no apparent distress, alert Eye Exam: PERRL/EOMI, eyes nml inspection Ears, Nose, Throat Exam: normal ENT inspection, TMs normal, pharynx normal, moist mucous membranes Neck Exam: normal inspection, non-tender, supple, full range of motion Respiratory Exam: normal breath sounds, lungs clear, No respiratory distress Cardiovascular Exam: regular rate/rhythm, normal heart sounds, normal peripheral pulses Gastrointestinal/Abdomen Exam: soft, normal bowel sounds, No tenderness, No mass Back Exam: normal inspection, normal range of motion, No CVA tenderness, No vertebral tenderness Extremity Exam: normal inspection, normal range of motion, pelvis stable, pedal edema (1+ pitting edema bilateral lower extremities) Neurologic Exam: alert, oriented x 3, cooperative, normal mood/affect, nml cerebellar function, nml station & gait, sensation nml, No motor deficits Skin Exam: normal color, warm, dry, No rash Lymphatic Exam: No adenopathy SpO2 Interpretation: normal SpO2: 99 O2 Delivery: Room Air - Course Nursing assessment & vital signs reviewed: Yes EKG Interpreted by Me: RATE (81), Sinus Rhythm, NORMAL AXIS, NORMAL INTERVALS, NORMAL QRS (Quality of EKG limited secondary to motion artifact and respiratory artifact) - Radiology Exams Chest X-ray Interpretation: Interpreted by me (Pulmonary edema) Ordered Tests: Active Orders 24 hr Category Date Time Status Shape Hand STAT Care 02/06/24 19:39 Completed EKG-ER Only STAT Care 02/06/24 19:39 Completed IV Insertion STAT Care 02/06/24 19:39 Completed Pulse Oximetry (ED) STAT Care 02/06/24 19:39 Completed CHEST 1 VIEW (PORTABLE) Stat Exams 02/06/24 19:39 Completed BLOOD CULTURE Stat Lab 02/06/24 19:39 Stop Req CBC W DIFF Stat Lab 02/06/24 19:43 Completed CMP Stat Lab 02/06/24 19:43 Completed Manual Differential NC Stat Lab 02/06/24 19:43 Completed NT PRO BNPII Stat Lab 02/06/24 19:50 Completed TROPONIN Q4H Lab 02/06/24 19:43 Completed TROPONIN Q4H Lab 02/06/24 23:45 Ordered TROPONIN Q4H Lab 02/07/24 03:45 Ordered Medication Summary Discontinued Medications Generic Name Dose Route Start Last Admin Trade Name Freq PRN Reason Stop Dose Admin Albuterol Sulfate 2.5 mg 02/06/24 19:40 02/06/24 20:00 Albuterol Sulfate 2.5 Mg/3 Ml Neb IH 02/06/24 19:41 2.5 mg STAT ONE Administration Albuterol Sulfate Confirm 02/06/24 20:02 Albuterol Sulfate 2.5 Mg/3 Ml Neb Administered 02/06/24 20:03 Dose 2.5 mg IH .STK-MED ONE Albuterol/Ipratropium Confirm 02/06/24 19:48 Ipratropium/Albuterol Sulfate 3 Ml Ampul.Neb Administered 02/06/24 19:49 Dose 3 ml IH .STK-MED ONE Aspirin 324 mg 02/06/24 23:23 02/06/24 23:27 Aspirin 81 Mg Tab.Chew PO 02/06/24 23:24 324 mg STAT ONE Administration Aspirin Confirm 02/06/24 23:26 Aspirin 81 Mg Tab.Chew Administered 02/06/24 23:27 Dose 324 mg .ROUTE .STK-MED ONE Furosemide 40 mg 02/06/24 22:55 02/06/24 23:27 Furosemide 40 Mg/4 Ml Vial IV 02/06/24 22:56 40 mg STAT ONE Administration Furosemide Confirm 02/06/24 23:26 Furosemide 40 Mg/4 Ml Vial Administered 02/06/24 23:27 Dose 40 mg .ROUTE .STK-MED ONE Nitroglycerin 1 gm 02/06/24 23:22 02/06/24 23:27 Nitroglycerin 1 Gm Packet TOP 02/06/24 23:23 1 gm ONCE STA Administration Nitroglycerin Confirm 02/06/24 23:26 Nitroglycerin 1 Gm Packet Administered 02/06/24 23:27 Dose 1 gm .ROUTE .STK-MED ONE Lab/Rad Data: Laboratory Result Diagrams 02/06/24 19:43 02/06/24 19:43 Laboratory Results 02/06/24 02/06/24 02/06/24 Range/Units 19:50 19:43 19:43 WBC (3.98-10.04) x10^3/uL RBC (3.93-5.22) x10^6/uL Hgb (11.2-15.7) g/dL Hct (34.1-44.9) % MCV (79.4-94.8) fL MCH (25.6-32.2) pg MCHC (32.2-35.5) g/dL RDW (11.7-14.4) % Plt Count (182-369) x10^3/uL MPV (9.4-12.3) fL Segmented Neutrophils (34.0-71.1) % Lymphocytes (Manual) (19.3-51.7) % Monocytes (Manual) (4.7-12.5) % Atypical Lymphocytes % Platelet Estimate (NORMAL) RBC Morphology Sodium 131 L (135-145) mmol/L Potassium 5.1 (3.5-5.1) mmol/L Chloride 88 L (98-107) mmol/L Carbon Dioxide 35 H (22-30) mmol/L Anion Gap 13.1 (5-15) MEQ/L BUN 16 (7-17) mg/dL Creatinine 0.66 (0.52-1.04) mg/dL Estimated GFR 92.0 ML/MIN Glucose 144 H (74-106) mg/dL Calcium 9.0 (8.4-10.2) mg/dL Total Bilirubin 0.60 (0.2-1.3) mg/dL AST 21 (14-36) U/L ALT 18 (0-35) U/L Alkaline Phosphatase 53 (38-126) U/L Troponin I < 0.012 (0.000-0.033) ng/mL NT-Pro-B Natriuret Pep 9040 (<300) pg/mL Serum Total Protein 6.5 (6.3-8.2) g/dL Albumin 3.8 (3.5-5.0) g/dL 02/06/24 Range/Units 19:43 WBC 14.7 H (3.98-10.04) x10^3/uL RBC 4.74 (3.93-5.22) x10^6/uL Hgb 13.4 (11.2-15.7) g/dL Hct 43.2 (34.1-44.9) % MCV 91.1 (79.4-94.8) fL MCH 28.3 (25.6-32.2) pg MCHC 31.0 L (32.2-35.5) g/dL RDW 13.7 (11.7-14.4) % Plt Count 256 (182-369) x10^3/uL MPV 9.0 L (9.4-12.3) fL Segmented Neutrophils 94 H (34.0-71.1) % Lymphocytes (Manual) 2 L (19.3-51.7) % Monocytes (Manual) 3 L (4.7-12.5) % Atypical Lymphocytes 1 % Platelet Estimate NORMAL (NORMAL) RBC Morphology NORMAL Sodium (135-145) mmol/L Potassium (3.5-5.1) mmol/L Chloride (98-107) mmol/L Carbon Dioxide (22-30) mmol/L Anion Gap (5-15) MEQ/L BUN (7-17) mg/dL Creatinine (0.52-1.04) mg/dL Estimated GFR ML/MIN Glucose (74-106) mg/dL Calcium (8.4-10.2) mg/dL Total Bilirubin (0.2-1.3) mg/dL AST (14-36) U/L ALT (0-35) U/L Alkaline Phosphatase (38-126) U/L Troponin I (0.000-0.033) ng/mL NT-Pro-B Natriuret Pep (<300) pg/mL Serum Total Protein (6.3-8.2) g/dL Albumin (3.5-5.0) g/dL - Progress Progress: improved Progress Note: Case discussed with Dr. Holman at 11:17 PM. Patient accepted to observation for further evaluation and treatment. 73-year-old female presents for emergency department for evaluation of shortness of breath. Patient was discharged just over a week ago for similar symptoms. Patient was diagnosed with congestive heart failure. Patient now on 4 L nasal cannula. Physical exam reveals crackles throughout. 1+ pitting edema bilateral lower extremity. BNP 9040. Lasix 40 mg IV administered. Nitropaste applied. 324 aspirin administered as well. Chest x-ray shows pulmonary congestion. Patient is hyponatremic at 131 however this is improved since her last admission approximately 10 days ago. Patient has a leukocytosis of 14,000 however patient just completed a course of steroids. Urinalysis pending. No antibiotics indicated at this time. Patient will require hospitalization for further evaluation and treatment. Plan of care discussed with patient. She agrees to admission [facility] for further evaluation and treatment. Portions of this note were created with voice recognition technology. There may be grammatical, spelling, punctuation or sound alike errors Complexity of problem addressed is moderate acute complicated. No critical care time. Complex of data reviewed and analyzed is extensive. Test ordered chest reviewed results analyzed and correlated clinically with history and physical exam. Management discussed with hospitalist who accepts admission to observation. Risk of complication and or risk of morbidity/mortality of patient management is high. Patient requires hospitalization for further evaluation an d treatment. Vital stable. Time spent to admit patient is approximately 15 minutes. Plan of care established for shared decision making. No social determinants of health present to impede follow-up. Portions of this note were created with voice recognition technology. There may be grammatical, spelling, punctuation or sound alike errors 02/06/24 23:17 Counseled pt/family regarding: lab results, diagnosis, rad results - Departure Departure Disposition: Observation Clinical Impression: Hypoxia, SOB (shortness of breath), CHF (congestive heart failure), Leukocytosis, Elevated brain natriuretic peptide (BNP) level Condition: Stable Critical Care Time: No
[2024-02-06 20:50] LABS: ATYPICAL LYMPHS 1 %; Lymphocytes 2 % (19.3-51.7); Monocyte 3 % (4.7-12.5); Neutrophils 94 % (34.0-71.1); Platelet Estimate NORMAL (NORMAL); Total Cells Counted 100
[2024-02-06] MEDS ORDERED: BABY ASPIRIN 81 MG CHEW ONE (23:26)
[2024-02-06] MEDS ORDERED: Lasix 40 MG/4 ML ONE (23:26)
[2024-02-06] MEDS ORDERED: NITRO-BID 2% UD PACKETS ONE (23:26)
[2024-02-06] MEDS: Lasix 40 MG/4 ML IV ONE (23:27)
[2024-02-06] MEDS: BABY ASPIRIN 81 MG CHEW PO ONE (23:27)
[2024-02-06] MEDS: NITRO-BID 2% UD PACKETS TOP STA (23:27)
--- NOTE | 2024-02-07 00:06 | XRAY ---
CLINICAL HISTORY: sob COMPARISON: None. TECHNIQUE: Radiograph of chest was acquired. FINDINGS: Mild levoconvex scoliosis of the lower thoracic spine is noted. Emphysematous changes are present in bilateral upper lung zones. Few fibro-reticular opacities in seen in the right lower lung zone. The cardiomediastinal silhouette is within normal limits. No pleural effusion. No acute osseous abnormality. IMPRESSION: 1. Mild levoconvex lower thoracic scoliosis. 2. Emphysematous changes in bilateral upper lung zones with lower zone fibro- reticular opacities(right more than left). Electronically Signed by: Curly Williamson MD. (02/07/2024 00:02:18 EST)
[2024-02-07] MEDS ORDERED: TYLENOL 325 MG PO PRN (02:41)
[2024-02-07] MEDS ORDERED: solu-MEDROL ONE (04:03)
[2024-02-07 04:16] LABS: Hematocrit 39.5 % (34.1-44.9); Hemoglobin 12.7 g/dL (11.2-15.7); Mean Cell Volume 89.4 fL (79.4-94.8); Mean Corpuscular Hemoglobin 28.7 pg (25.6-32.2); Mean Corpuscular Hgb Concent. 32.2 g/dL (32.2-35.5); Mean Platelet Volume 8.9 fL (9.4-12.3); Platelet Count 222 x10^3/uL (182-369); Red Blood Count 4.42 x10^6/uL (3.93-5.22); Red Cell Distribution Width 13.6 % (11.7-14.4); White Blood Count 14.2 x10^3/uL (3.98-10.04)
[2024-02-07] MEDS: solu-MEDROL 40 MG, Sterile H2O 10 ml 1 ML IV STA (04:20)
[2024-02-07 04:29] LABS: Calcium 8.9 mg/dL (8.4-10.2); Creatinine 1 0.65 mg/dL (0.52-1.04); EST GLOMERULAR FILTRATION RATE 92.3 ML/MIN; Potassium 4.6 mmol/L (3.5-5.1)
--- NOTE | 2024-02-07 05:24 | PCM.HP ---
History of Present Illness - Chief Complaint Chief Complaint: shortness of breath Date: 02/07/24 History of Present Illness: is a 73 year old female with h/o COPD, CHF, HTN, and hypothyroidism, who presents with dyspnea. Patient was admitted previously from 01/26 to 01/27 with one week of progressive dyspnea and cough. She was found to have hyponatremia, and treated for COPD and CHF exacerbations. Patient declined to stay in the hospital any longer than one night, and was discharged home on 4L oxygen (she was on room air at baseline previously). She was given 5 day course of prednisone and levaquin. Patient completed all of these therapies, but did not follow up with PCP. She states her breathing never improved after discharge, with continued cough productive of thick white sputum. She also complains of orthopnea, PND, and leg edema. - Review of Systems Constitutional: No Fever, No Weakness Respiratory: Cough, Orthopnea, Short Of Breath Cardiac: Edema, PND, No Chest Pain All Other Systems: Reviewed and Negative Medications & Allergies Home Medications: Home Medication List Albuterol 8 gm Mdi Hfa [Ventolin Hfa MDI] 2 puff IH Q4HPRN PRN 01/27/24 [History Confirmed 02/06/24] Atorvastatin Calcium [Lipitor] 20 mg PO DAILY 01/27/24 [History Confirmed 02/06/24] Carvedilol [Coreg ] 6.25 mg PO DAILY 01/27/24 [History Confirmed 02/06/24] Carvedilol 12.5 mg [Coreg 12.5 mg] 12.5 mg PO QHS 01/27/24 [History Confirmed 02/06/24] Digoxin [Lanoxin] 250 mcg PO DAILY 01/27/24 [History Confirmed 02/06/24] Fexofenadine/Pseudoephedrine [Fexofenadine-Pse ER 180-240 Tb] 1 each PO DAILY 01/27/24 [History Confirmed 02/06/24] Fluticasone/Salmeterol 115/21 [Advair Hfa 115/21 Common canister*] 2 puff IH BID 01/27/24 [History Confirmed 02/06/24] Fluticasone/Umeclidin/Vilanter [Trelegy Ellipta 100-62.5-25] 1 dose IH DAILY 01/27/24 [History Confirmed 02/06/24] Ipratropium/Albuterol Sulfate [Combivent Respimat Common Canister] 1 puff IH QID 01/27/24 [History Confirmed 02/06/24] Prednisone 5 mg [Deltasone 5 mg] 5 mg PO DAILY 01/27/24 [History Confirmed 02/06/24] Ranolazine 500 MG [Ranexa 500 MG] 500 mg PO DAILY 01/27/24 [History Confirmed 02/06/24] Thyroid,Pork [Supervisor [employer]athing Thyroid] 30 mg PO DAILY 01/27/24 [History Confirmed 02/06/24] Allergies/Adverse Reactions: Allergies Allergy/AdvReac Type Severity Reaction Status Date / Time Penicillins Allergy Verified 01/27/24 09:59 - Past Medical History Past Medical History: Yes Neurological History: No Pertinent History ENT History: Cataracts Cardiac History: Hypertension Respiratory History: Asthma, COPD Endocrine Medical History: Hypothyroidism Musculoskelatal History: Arthritis GI Medical History: No Pertinent History History: No Pertinent History Pyscho-Social History: No Pertinent History Reproductive Disorders: No Pertinent History - Past Surgical History Past Surgical History: Yes Neuro Surgical History: No Pertinent History Cardiac History: No Pertinent History Respiratory Surgery: No Pertinent History GI Surgical History: Cholecystectomy Genitourinary Surgical Hx: No Pertinent History Musculskeletal Surgical Hx: No Pertinent History Female Surgical History: Dilation & Curettage Significant Family History: no pertinent family hx - Social History Smoking Status: Current every day smoker How long have you smoked: 25+ YEARS Exposure to second hand smoke: No Alcohol: None Drug Use: none - Social Determinants of Health Will the patient participate in the screening: Yes Do you worry about a steady place to live?: No Do you have any problems with any of the following?: No known problems In the past 12 months,have you had to go without utilities?: No Have you or anyone in your house had to go without enough: No Transportation Issues: No Has anyone in your support network made you feel unsafe?: No Does the patient want assistance with any of the above?: No - Physical Exam Vital Signs: Vital Signs - 24 hr Temp Pulse Resp BP BP Pulse Ox 02/07/24 03:01 98.2 F 84 16 133/58 90 L 02/07/24 00:17 99 02/06/24 23:57 97.7 F 81 20 141/67 91 L 02/06/24 23:41 97.7 F 81 141/67 91 L 02/06/24 23:00 76 26 H 160/82 96 02/06/24 22:30 77 31 H 139/82 96 02/06/24 22:00 75 27 H 151/66 96 02/06/24 21:30 74 19 152/85 97 02/06/24 21:00 76 27 H 140/73 98 02/06/24 20:30 75 26 H 148/86 02/06/24 20:14 84 26 H 156/84 98 02/06/24 20:10 125 H 18 100 02/06/24 20:00 85 31 H 156/84 99 02/06/24 19:43 99 02/06/24 19:30 170/76 100 02/06/24 19:10 185/100 100 02/06/24 19:08 98.2 F 103 H 30 H 185/100 95 General Appearance: no apparent distress Neurologic Exam: alert, oriented x 3, normal mood/affect Eye Exam: eyes nml inspection, No scleral icterus Ears, Nose, Throat Exam: moist mucous membranes Neck Exam: supple, full range of motion Respiratory Exam: other (end expiratory wheezing throughout, on 4L O2 by NC) Cardiovascular Exam: regular rate/rhythm, normal heart sounds, edema (1+ pedal edema) Gastrointestinal/Abdomen Exam: No tenderness, No distention Back Exam: normal range of motion, No rash Extremity Exam: normal range of motion, No joint swelling Skin Exam: normal color, No rash Results - Labs Lab/Micro Results: Lab Results-Last 24 Hours 02/06/24 02/06/24 02/06/24 Range/Units 19:43 19:43 19:43 WBC 14.7 H (3.98-10.04) x10^3/uL RBC 4.74 (3.93-5.22) x10^6/uL Hgb 13.4 (11.2-15.7) g/dL Hct 43.2 (34.1-44.9) % MCV 91.1 (79.4-94.8) fL MCH 28.3 (25.6-32.2) pg MCHC 31.0 L (32.2-35.5) g/dL RDW 13.7 (11.7-14.4) % Plt Count 256 (182-369) x10^3/uL MPV 9.0 L (9.4-12.3) fL Segmented Neutrophils 94 H (34.0-71.1) % Lymphocytes (Manual) 2 L (19.3-51.7) % Monocytes (Manual) 3 L (4.7-12.5) % Atypical Lymphocytes 1 % Platelet Estimate NORMAL (NORMAL) RBC Morphology NORMAL Sodium 131 L (135-145) mmol/L Potassium 5.1 (3.5-5.1) mmol/L Chloride 88 L (98-107) mmol/L Carbon Dioxide 35 H (22-30) mmol/L Anion Gap 13.1 (5-15) MEQ/L BUN 16 (7-17) mg/dL Creatinine 0.66 (0.52-1.04) mg/dL Estimated GFR 92.0 ML/MIN Glucose 144 H (74-106) mg/dL Calcium 9.0 (8.4-10.2) mg/dL Total Bilirubin 0.60 (0.2-1.3) mg/dL AST 21 (14-36) U/L ALT 18 (0-35) U/L Alkaline Phosphatase 53 (38-126) U/L Troponin I < 0.012 (0.000-0.033) ng/mL NT-Pro-B Natriuret Pep (<300) pg/mL Serum Total Protein 6.5 (6.3-8.2) g/dL Albumin 3.8 (3.5-5.0) g/dL 02/06/24 02/06/24 02/07/24 Range/Units 19:50 23:55 04:12 WBC 14.2 H (3.98-10.04) x10^3/uL RBC 4.42 (3.93-5.22) x10^6/uL Hgb 12.7 (11.2-15.7) g/dL Hct 39.5 (34.1-44.9) % MCV 89.4 (79.4-94.8) fL MCH 28.7 (25.6-32.2) pg MCHC 32.2 (32.2-35.5) g/dL RDW 13.6 (11.7-14.4) % Plt Count 222 (182-369) x10^3/uL MPV 8.9 L (9.4-12.3) fL Segmented Neutrophils (34.0-71.1) % Lymphocytes (Manual) (19.3-51.7) % Monocytes (Manual) (4.7-12.5) % Atypical Lymphocytes % Platelet Estimate (NORMAL) RBC Morphology Sodium (135-145) mmol/L Potassium (3.5-5.1) mmol/L Chloride (98-107) mmol/L Carbon Dioxide (22-30) mmol/L Anion Gap (5-15) MEQ/L BUN (7-17) mg/dL Creatinine (0.52-1.04) mg/dL Estimated GFR ML/MIN Glucose (74-106) mg/dL Calcium (8.4-10.2) mg/dL Total Bilirubin (0.2-1.3) mg/dL AST (14-36) U/L ALT (0-35) U/L Alkaline Phosphatase (38-126) U/L Troponin I 0.014 (0.000-0.033) ng/mL NT-Pro-B Natriuret Pep 9040 (<300) pg/mL Serum Total Protein (6.3-8.2) g/dL Albumin (3.5-5.0) g/dL 02/07/24 Range/Units 04:12 WBC (3.98-10.04) x10^3/uL RBC (3.93-5.22) x10^6/uL Hgb (11.2-15.7) g/dL Hct (34.1-44.9) % MCV (79.4-94.8) fL MCH (25.6-32.2) pg MCHC (32.2-35.5) g/dL RDW (11.7-14.4) % Plt Count (182-369) x10^3/uL MPV (9.4-12.3) fL Segmented Neutrophils (34.0-71.1) % Lymphocytes (Manual) (19.3-51.7) % Monocytes (Manual) (4.7-12.5) % Atypical Lymphocytes % Platelet Estimate (NORMAL) RBC Morphology Sodium 129 L (135-145) mmol/L Potassium 4.6 (3.5-5.1) mmol/L Chloride 87 L (98-107) mmol/L Carbon Dioxide 36 H (22-30) mmol/L Anion Gap Pending (5-15) MEQ/L BUN 21 H (7-17) mg/dL Creatinine 0.65 (0.52-1.04) mg/dL Estimated GFR 92.3 ML/MIN Glucose 112 H (74-106) mg/dL Calcium 8.9 (8.4-10.2) mg/dL Total Bilirubin (0.2-1.3) mg/dL AST (14-36) U/L ALT (0-35) U/L Alkaline Phosphatase (38-126) U/L Troponin I (0.000-0.033) ng/mL NT-Pro-B Natriuret Pep (<300) pg/mL Serum Total Protein (6.3-8.2) g/dL Albumin (3.5-5.0) g/dL Microbiology 02/06/24 19:39 Blood Culture Gram Stain - Final Blood Not Reportable - Radiology Impressions Radiology Exams & Impressions: Radiology Procedures Category Date Time Status CHEST 1 VIEW (PORTABLE) Stat Exams 02/06/24 19:39 Completed CXR with diffuse scarring, some possible cephalization, no consolidation. Essentially unchanged from prior 10 days earlier. (images reviewed) - Other Procedures and Tests Respiratory Therapy 02/06/24 20:09 Respiratory Therapy Assessment DAILY 02/07/24 00:28 Smoking Cessation Education ONCE 02/07/24 02:41 Oxygen Nasal Cannula 4 lpm Assessment/Plan (1) COPD exacerbation Current Visit: No Status: Acute Assessment & Plan: 73 y/o F with h/o COPD, CHF, HTN, hypothyroidism, and tobacco use, here with COPD exacerbation and CHF exacerbation. ## COPD exacerbation - patient was only partially treated previously, due to her desire to return to home and leave hospital. Has not had sufficient improvement with initial outpatient therapy. Still has wheezing. And while some component of CHF as well (see below), she has lower BNP than previous, and only mild hypervolemia on exam, suggesting more of a COPD component. - give SoluMedrol x1 now - start prednisone 40 mg daily - DuoNeb q4h - although patient has leukocytosis, no signs of infection on CXR, will hold off on further antibiotics (just completed course of Levaquin) ## Acute on chronic CHF - unknown if systolic or diastolic. Mild, with BNP elevated at 9000, but decreased from 11,000 last week. Also, only minimal pulmonary edema on CXR and pedal edema on exam. - give Lasix 40 mg x1 now, and continue daily - follow Cr, K - check echo - conitnue Coreg 6.25 AM/12.5 PM, Digoxin 250 mcg daily ## hyponatremia - improved from prior, from 126 last admission to 131 today - monitor as diurese ## Acute vs chronic hypoxic respiratory failure - at baseline one month ago, patient did not require oxygen. It is unclear if her current oxygen requirements are true need or were from incompletely treated COPD/CHF as above. However, patient's serum bicarb is in 30s, suggesting possible chronic CO2 retention component and more severe COPD than originally though. - continue oxygen, titrate to keep SpO2 between 91 and 94% ## hypertension - BP mildly elevated in setting of acute illness - continue Coreg Code status: Full code Prophylaxis: Lovenox Diet: Low sodium Dispo: Place in observation; expect eventual discharge to home Code(s): J44.1 - CHRONIC OBSTRUCTIVE PULMONARY DISEASE W (ACUTE) EXACERBATION Telemedicine Encounter - Telemedicine Encounter Telemedicine Encounter: "The entirety of this encounter was performed via Telemedicine" This visit was performed using real-time audio and video connection between my location and thepatients locationwith the assistance of a surrogateat the patients location. Written or verbal consent was obtained from the patient/guardian to perform this visit using[facility] technology. Any patient questions regarding the telemedicine interaction were answered.
[2024-02-07 06:36] LABS: ANION GAP 10.6 MEQ/L (5-15)
[2024-02-07] MEDS: DUONEB 0.5-3 MG/3 ml Neb IH PRN (07:39)
[2024-02-07] MEDS: Coreg PO SCH (09:27)
[2024-02-07] MEDS: Lanoxin 0.125MG TABLET PO SCH (09:27)
[2024-02-07] MEDS: Ranexa 500 MG PO SCH (09:27)
[2024-02-07] MEDS: DELTASONE 20 MG PO SCH (09:27)
[2024-02-07] MEDS: ZOCOR 20MG PO SCH (09:27)
[2024-02-07] MEDS: ENOXAPARIN SODIUM SQ SCH (09:28)
[2024-02-07] MEDS: Lasix 40 MG/4 ML IV SCH (09:28)
[2024-02-07] MEDS: NON-FORMULARY ITEM PO SCH (09:28)
[2024-02-07] MEDS ORDERED: NON-FORMULARY ITEM (Atorvastatin Calcium [Lipitor] 20 MG Tablet) PO SCH (10:00)
[2024-02-07] MEDS ORDERED: THYROID PORK 15 MG PO SCH (10:00)
[2024-02-07] MEDS ORDERED: NON-FORMULARY ITEM PO SCH (10:00)
[2024-02-07] MEDS ORDERED: DIGOXIN 250 MCG PO SCH (10:00)
[2024-02-07] MEDS ORDERED: Zithromax 500 MG/ 250 ML NaCl Premix 500 MG/250 ML IVPB IV SCH (11:00)
[2024-02-07] MEDS ORDERED: PROVENTIL 2.5 MG/3 ML NEB IH SCH (11:00)
[2024-02-07] MEDS: PROVENTIL 2.5 MG/3 ML NEB IH SCH (11:12)
[2024-02-07] MEDS: LEVOFLOXACIN 750MG/150ML D5W 750 MG/150 ML BAG IV SCH (12:26)
[2024-02-07] MEDS: COREG 12.5 MG PO SCH (21:38)
[2024-02-08] MEDS: PATIENT OWN MEDICATION IH SCH (05:02)
[2024-02-08 05:50] LABS: Hematocrit 42.5 % (34.1-44.9); Hemoglobin 13.9 g/dL (11.2-15.7); Mean Cell Volume 88.4 fL (79.4-94.8); Mean Corpuscular Hemoglobin 28.9 pg (25.6-32.2); Mean Corpuscular Hgb Concent. 32.7 g/dL (32.2-35.5); Mean Platelet Volume 10.2 fL (9.4-12.3); Platelet Count 250 x10^3/uL (182-369); Red Blood Count 4.81 x10^6/uL (3.93-5.22); Red Cell Distribution Width 13.4 % (11.7-14.4); White Blood Count 13.6 x10^3/uL (3.98-10.04)
[2024-02-08 05:57] LABS: ALBUMIN 3.5 g/dL (3.5-5.0); BILIRUBIN,TOTAL 0.5 mg/dL (0.2-1.3); Calcium 9.3 mg/dL (8.4-10.2); Creatinine 1 0.67 mg/dL (0.52-1.04); EST GLOMERULAR FILTRATION RATE 91.7 ML/MIN; Total Protein 6.2 g/dL (6.3-8.2)
[2024-02-08 06:11] LABS: Eosinophil 2 % (0.7-5.8); Lymphocytes 8 % (19.3-51.7); Monocyte 6 % (4.7-12.5); Neutrophils 84 % (34.0-71.1); Total Cells Counted 100
[2024-02-08 06:12] LABS: Platelet Estimate NORMAL (NORMAL)
[2024-02-08] MEDS ORDERED: ROCEPHIN 1 GM / 100 ML NaCl 1 GM/100 ML IVPB IV SCH (10:00)
[2024-02-08 12:30] VITALS: BP 110/56; TEMP 96.3; O2SAT 97
--- NOTE | 2024-02-08 13:45 | PCM.DS ---
Discharge Summary Date of Admission: 02/06/24 23:09 Date of Discharge: 02/08/24 Admitting Physician: TIANA AGUIRRE MD Primary Care Provider: BONIFACIO ROSALES Allergies Allergies Penicillins Allergy (Verified 01/27/24 09:59) Hospital Summary - Hospital Course Hospital Course: is a 73 year old female with h/o COPD, CHF, HTN, and hypothyroidism, who presents with dyspnea. Patient was admitted previously from 01/26 to 01/27 with one week of progressive dyspnea and cough. She was found to have hyponatremia, and treated for COPD and CHF exacerbations. Patient declined to stay in the hospital any longer than one night, and was discharged home on 4L oxygen (she was on room air at baseline previously). She was given 5 day course of prednisone and levaquin. Patient completed all of these therapies, but did not follow up with PCP. She states her breathing never improved after discharge, with continued cough productive of thick white sputum. She also complains of orthopnea, PND, and leg edema. Admitted with CHF/COPD exacerbation and pneumonia . CXR showed Emphysematous changes in bilateral upper lung zones with lower zone fibro-reticular opacities(right more than left). Patient states cough and dyspnea have improved. At baseline oxygen. She received IP treatment with Levaquin and steroids. Patient is requesting discharge home today. Will send home on Lasix, levaquin, and prednisone. Close follow up with PCP and cardiology advised. Patient agreeable to plan and stable for discharge. Discharge Note New Diagnosis: Pnemonia/chf exac New Medications: levaquin, lasix, prednisone Follow Up: PCP/cardiology Latest Assessment & Plan 73 y/o F with h/o COPD, CHF, HTN, hypothyroidism, and tobacco use, here with COPD exacerbation and CHF exacerbation. ##Pneumonia -CXR showing Emphysematous changes in bilateral upper lung zones with lower zone fibro-reticular opacities(right more than left -IP treatment with levaquin -at baseline oxygen -will discharge on levaquin and medrol dose pack ## COPD exacerbation - patient was only partially treated previously, due to her desire to return to home and leave hospital. Has not had sufficient improvement with initial outpatient therapy. Still has wheezing. And while some component of CHF as well (see below), she has lower BNP than previous, and only mild hypervolemia on exam, suggesting more of a COPD component. - give SoluMedrol x1 now - start prednisone 40 mg daily - DuoNeb q4h - although patient has leukocytosis, no signs of infection on CXR, will hold off on further antibiotics (just completed course of Levaquin) ## Acute on chronic CHF - unknown if systolic or diastolic. Mild, with BNP elevated at 9000, but decreased from 11,000 last week. Also, only minimal pulmonary edema on CXR and pedal edema on exam. - give Lasix 40 mg x1 now, and continue daily - follow Cr, K - check echo - conitnue Coreg 6.25 AM/12.5 PM, Digoxin 250 mcg daily 02/07: -Discharge on lasix 40mg daily - follow up with cardiology ## hyponatremia - improved from prior, from 126 last admission to 131 today - monitor as dasha ## Acute vs chronic hypoxic respiratory failure - at baseline one month ago, patient did not require oxygen. It is unclear if her current oxygen requirements are true need or were from incompletely treated COPD/CHF as above. However, patient's serum bicarb is in 30s, suggesting possible chronic CO2 retention component and more severe COPD than originally though. - continue oxygen, titrate to keep SpO2 between 91 and 94% ## hypertension - BP mildly elevated in setting of acute illness - continue Coreg I spent 35 minutes [id number] with the patient on the day of discharge performing discharge exam, discussing hospital stay and discharge instructions with patient and caregivers, preparation of discharge records, prescriptions & referral forms and addressing any questions/concerns the patient had as documented above. - Vitals & Intake/Output Vital Signs: Vital Signs Temperature 96.3 F 02/08/24 12:00 Pulse Rate 73 02/08/24 12:00 Respiratory Rate 18 02/08/24 12:00 Blood Pressure 110/56 02/08/24 12:00 O2 Sat by Pulse Oximetry 97 02/08/24 12:00 Intake & Output: Intake & Output 02/06/24 02/07/24 02/08/24 02/09/24 11:59 11:59 11:59 11:59 Intake Total 240 480 Output Total 1250 1200 Balance -1010 -720 Weight 51 kg - Lab Result Diagrams: 02/08/24 05:41 02/08/24 05:41 Lab Results-Last 24 Hrs: Lab Results-Last 24 Hours 02/08/24 02/08/24 Range/Units 05:41 05:41 WBC 13.6 H (3.98-10.04) x10^3/uL RBC 4.81 (3.93-5.22) x10^6/uL Hgb 13.9 (11.2-15.7) g/dL Hct 42.5 (34.1-44.9) % MCV 88.4 (79.4-94.8) fL MCH 28.9 (25.6-32.2) pg MCHC 32.7 (32.2-35.5) g/dL RDW 13.4 (11.7-14.4) % Plt Count 250 (182-369) x10^3/uL MPV 10.2 (9.4-12.3) fL Segmented Neutrophils 84 H (34.0-71.1) % Lymphocytes (Manual) 8 L (19.3-51.7) % Monocytes (Manual) 6 (4.7-12.5) % Eosinophils (Manual) 2 (0.7-5.8) % Platelet Estimate NORMAL (NORMAL) RBC Morphology NORMAL Sodium 131 L (135-145) mmol/L Potassium 4.0 (3.5-5.1) mmol/L Chloride 85 L (98-107) mmol/L Carbon Dioxide 39 H (22-30) mmol/L Anion Gap 11.0 (5-15) MEQ/L BUN 24 H (7-17) mg/dL Creatinine 0.67 (0.52-1.04) mg/dL Estimated GFR 91.7 ML/MIN Glucose 125 H (74-106) mg/dL Calcium 9.3 (8.4-10.2) mg/dL Total Bilirubin 0.50 (0.2-1.3) mg/dL AST 18 (14-36) U/L ALT 16 (0-35) U/L Alkaline Phosphatase 45 (38-126) U/L Serum Total Protein 6.2 L (6.3-8.2) g/dL Albumin 3.5 (3.5-5.0) g/dL Micro Results-Entire Visit: Microbiology 02/06/24 23:55 Blood Culture - Preliminary Blood 02/06/24 19:43 Blood Culture - Preliminary Blood - Radiology Exams Ordered Rad Exams-Entire Visit: Radiology Procedures Category Date Time Status CHEST 1 VIEW (PORTABLE) Stat Exams 02/06/24 19:39 Completed ECHO W/2D AND DOPPLER [US] Routine Exams 02/07/24 05:28 Taken - Procedures and Test Procedures and Tests throughout Hospitalization: Therapy Orders & Screens 02/06/24 20:09 Respiratory Therapy Assessment DAILY Comment: 02/07/24 00:28 RT Screen per Nursing Assess ONCE Comment: Protocol Order Physician Instructions: Greater than 3 points order RT Admission Screen Reason For Exam: Triggered on Admission Diagnosis: exac copd Diagnosis: exac copd Pneumonia: No Home O2: Yes: 4 Asthma: No CHF: Yes Home CPAP/BIPAP: No Home Nebs/MDI: Yes Total Points: 13 Smoking Cessation Education ONCE Comment: Diagnosis: exac copd Smoking Status: Current every day smoker How long have you smoked: 25+ YEARS Approximately how many cigarettes per day: 1pk q2-3 days Do you dip or chew tobacco: No 02/07/24 02:41 Oxygen Nasal Cannula 4 lpm Comment: Diagnosis: exac copd Respiratory Therapy Consult ONCE Comment: Reason For Exam: Diagnosis: exac copd Discharge Exam General Appearance: no apparent distress Neurologic Exam: alert, oriented x 3, cooperative Eye Exam: PERRL Ears, Nose, Throat Exam: normal ENT inspection Neck Exam: normal inspection Respiratory Exam: crackles/rales Cardiovascular Exam: regular rate/rhythm, normal heart sounds Gastrointestinal/Abdomen Exam: soft, normal bowel sounds Pelvic Exam: deferred Rectal Exam: deferred Back Exam: normal inspection Extremity Exam: normal inspection Skin Exam: normal color Final Diagnosis/Problem List - Final Discharge Diagnosis/Problem (1) Pneumonia Current Visit: Yes Status: Acute Code(s): J18.9 - PNEUMONIA, UNSPECIFIED ORGANISM (2) CHF exacerbation Current Visit: Yes Status: Acute Code(s): I50.9 - HEART FAILURE, UNSPECIFIED (3) COPD exacerbation Current Visit: Yes Status: Acute Code(s): J44.1 - CHRONIC OBSTRUCTIVE PULMONARY DISEASE W (ACUTE) EXACERBATION (4) Hyponatremia Current Visit: Yes Status: Acute Code(s): E87.1 - HYPO-OSMOLALITY AND HYPONATREMIA (5) Acute on chronic respiratory failure with hypoxemia Current Visit: Yes Status: Acute Code(s): J96.21 - ACUTE AND CHRONIC RESPIRATORY FAILURE WITH HYPOXIA - Discharge Disposition: Home, Self-Care Condition: Stable Prescriptions: New Prednisone 20 mg [Deltasone 20 mg] 20 mg PO BID 5 Days #10 tablet Furosemide 40 mg [Lasix 40 MG] 40 mg PO DAILY 14 Days #14 tablet levoFLOXacin [Levofloxacin] 750 mg PO DAILY 7 Days #7 tablet Potassium Chloride 20 meq PO DAILY 14 Days #14 tablet Continue Fluticasone/Umeclidin/Vilanter [Trelegy Ellipta 100-62.5-25] 1 dose IH DAILY Albuterol 8 gm Mdi Hfa [Ventolin Hfa MDI] 2 puff IH Q4HPRN PRN PRN Reason: Shortness Of Breath/Wheezing Fluticasone/Salmeterol 115/21 [Advair Hfa 115/21 Common canister*] 2 puff IH BID Ipratropium/Albuterol Sulfate [Combivent Respimat Common Canister] 1 puff IH QID Atorvastatin Calcium [Lipitor] 20 mg PO DAILY Digoxin [Lanoxin] 250 mcg PO DAILY Thyroid,Pork [[employer] Thyroid] 30 mg PO DAILY Ranolazine 500 MG [Ranexa 500 MG] 500 mg PO DAILY Carvedilol 12.5 mg [Coreg 12.5 mg] 12.5 mg PO QHS Fexofenadine/Pseudoephedrine [Fexofenadine-Pse ER 180-240 Tb] 1 each PO DAILY Carvedilol [Coreg ] 6.25 mg PO DAILY Discontinued Prednisone 5 mg [Deltasone 5 mg] 5 mg PO DAILY Follow up with: ION SALAMANCA MD [CONSULTING PHYSICIAN] - 06/11/24 10:45 am (with Damián Smith NP patient will be called by office when a sooner appt is available) BONIFACIO ROSALES MD [Primary Care Provider] - 02/13/24 9:30 am (at [facility])
[2024-02-08 14:22] VITALS: PULSE 74; RESP 20
== END 2024-02-08 15:24 | disposition home or self-care (01) ==
LOC: ED 19:08 → MED SURG 23:09
PROVIDERS: ADMIT Internal Medicine; ATTEND Internal Medicine
DX: J18.9 Pneumonia, unspecified organism (principal); I11.0 Hypertensive heart disease with heart failure; I50.9 Heart failure, unspecified; J44.1 Chronic obstructive pulmonary disease with (acute) exacerbation; E87.1 Hypo-osmolality and hyponatremia; J96.21 Acute and chronic respiratory failure with hypoxia; R60.0 Localized edema; E03.9 Hypothyroidism, unspecified; F17.200 Nicotine dependence, unspecified, uncomplicated; Z79.899 Other long term (current) drug therapy
CPT/HCPCS: 36415; 71045; 80048; 80053; 83880; 84484; 85025; 85027; 87040; 93005; 93041; 93306; 94640; 94760; 94762; 99285; Q3014; 93268; J1650; J1940; J1956; J2919; J7609; A9270-GY; G0378